=== PATIENT | female | born 1965 | race Two or more races ===

== ENCOUNTER 2023-11-25 14:27 | Emergency (ER) | payer MEDICAID ==
[~2023-11-25] VITALS: Ht 152.4 cm; Wt 88.7 kg
[2023-11-25 14:27] VITALS: BP 130/60; PULSE 97; RESP 18; O2SAT 100
== END 2023-11-25 20:50 | disposition left against medical advice (07) ==
LOC: ER 14:27
DX: R06.02 Shortness of breath (principal); R05.9 Cough, unspecified; Z53.21 Procedure and treatment not carried out due to patient leaving prior to being seen by health care provider
CPT/HCPCS: 93005

== ENCOUNTER 2023-12-15 03:19 | Inpatient (IN) | payer MEDICAID ==
[~2023-12-15] VITALS: Ht 152.4 cm; Wt 96.8 kg
[2023-12-15 03:46] LABS: Basophils # (auto) 0.1 10 ^3/uL (0-0.2); Eosinophils # (auto) 0 10 ^3/uL (0-0.8); Eosinophils % (auto) 0.4 % (0.0-7.0); Hemoglobin 9.6 g/dL (12.2-16.2); Monocytes # (auto) 0.6 10 ^3/uL (0-1.3)
[2023-12-15 03:48] LABS: Basophils % (auto) 0.8 % (0.0-2.0); Hematocrit 30.1 % (36.0-46.0); Lymphocytes # (auto) 0.9 10 ^3/uL (0.4-5.4); Lymphocytes % (auto) 10.2 % (10.0-50.0); Mean Corpuscular Hemoglobin 22.1 pg (28.0-32.0); Neutrophils # (auto) 7.4 10 ^3/uL (1.6-8.6); Neutrophils % (auto) 81.6 % (37.0-80.0); Red Blood Cells 4.36 10^6/uL (4.0-5.20); Red Cell Distribution Width 18.1 % (11.8-14.3); White Blood Cell 9.1 10^3/uL (4.4-10.8)
[2023-12-15 03:54] LABS: Chloride 110 mmol/L (98-107); Potassium 3.4 mmol/L (3.5-5.1); Sodium 139 mmol/L (136-145)
[2023-12-15 03:55] LABS: Anion Gap 9 (5-15); Calcium 8.8 mg/dL (8.7-10.4); Carbon Dioxide 20 mmol/L (20-30)
[2023-12-15 04:00] LABS: BUN/Creatinine Ratio 13.5 (10.0-20.0); Blood Urea Nitrogen 21 mg/dL (9-23); Glucose 100 mg/dL (74-106)
[2023-12-15] MEDS: MORPHINE SULFATE 4 MG/ML SYR/VIAL IV ONE (04:20)
[2023-12-15 04:52] LABS: Urine Bacteria None Seen /hpf (None Seen)
[2023-12-15 04:59] LABS: Urine Blood 1+ /uL (Negative); Urine Clarity Clear (Clear); Urine Color Light-Yellow (Yellow); Urine Mucus FEW (None Seen); Urine Protein, UAD 1+ (Negative); Urine Specific Gravity 1.017 (1.001-1.035); Urine Urobilinogen Normal (Negative); Urine WBC 82 /hpf (0 - 5)
[2023-12-15] MEDS: cefTRIAXone 1GM/50ML D5W 50 ML IV ONE (05:03)
[2023-12-15] MEDS ORDERED: DOCUSATE SOD 100 MG CAP PO PRN (05:45)
[2023-12-15] MEDS ORDERED: MORPHINE SULFATE INJ 2 MG/ml SYRG IV PRN (05:45)
[2023-12-15] MEDS ORDERED: NITROGLYCERIN 0.4 MG SL TAB SL PRN (05:45)
[2023-12-15] MEDS: POTASSIUM CHL 20 Meq TABLET PO ONE (06:37)
[2023-12-15] MEDS: SODIUM CHLORIDE 0.9% 1,000 ML IV SCH (06:38)
[2023-12-15 07:30] VITALS: PULSE 76; RESP 14; O2SAT 98
[2023-12-15] MEDS: MORPHINE SULFATE 4 MG/ML SYR/VIAL IV PRN (11:54)
[2023-12-15 14:34] VITALS: BP 139/76; PULSE 92; RESP 16; TEMP 99.7; O2SAT 95
[2023-12-15] MEDS: HYDROcodone-ACET 5/325MG TAB PO PRN (15:10)
[2023-12-15 17:00] VITALS: BP 112/63; PULSE 91; RESP 19; TEMP 101.4; O2SAT 94
[2023-12-15] MEDS: ACETAMINOPHEN 325 MG TAB PO PRN (17:39)
[2023-12-15] MEDS: TAMSULOSIN HYDROCHLORIDE 0.4 MG CAP PO SCH (17:40)
[2023-12-15 20:00] VITALS: RESP 17; O2SAT 97
[2023-12-15 21:00] VITALS: BP 107/65; PULSE 94; RESP 20; TEMP 98.7; O2SAT 95
[2023-12-16] VITALS (7 sets, daily range): BP systolic 98–135; BP diastolic 53–76; PULSE 92–98; RESP 16–22; TEMP 98.9–101.6; O2SAT 94–98
[2023-12-16] MEDS: cefTRIAXone 1GM/50ML D5W 50 ML IV SCH (04:48)
[2023-12-16 06:18] LABS: Eosinophils # (auto) 0 10 ^3/uL (0-0.8); Eosinophils % (auto) 0.2 % (0.0-7.0); Hemoglobin 9.2 g/dL (12.2-16.2); Lymphocytes # (auto) 0.7 10 ^3/uL (0.4-5.4); Lymphocytes % (auto) 5.2 % (10.0-50.0); Mean Corpuscular Hemoglobin 21.5 pg (28.0-32.0); White Blood Cell 13.2 10^3/uL (4.4-10.8)
[2023-12-16 06:20] LABS: Basophils # (auto) 0.1 10 ^3/uL (0-0.2); Basophils % (auto) 0.5 % (0.0-2.0); Hematocrit 29.9 % (36.0-46.0); Mean Corpuscular Hgb Conc. 30.9 g/dL (32.0-36.0); Mean Corpuscular Volume 69.6 fL (80.0-100.0); Monocytes % (auto) 7.3 % (0.0-12.0); Neutrophils # (auto) 11.4 10 ^3/uL (1.6-8.6); Neutrophils % (auto) 86.8 % (37.0-80.0); Red Cell Distribution Width 17.8 % (11.8-14.3)
[2023-12-16 06:34] LABS: Alanine Aminotransferase 27 U/L (7-40); Alkaline Phosphatase 135 U/L (46-116); Anion Gap 8 (5-15); BUN/Creatinine Ratio 9.4 (10.0-20.0); Blood Urea Nitrogen 18 mg/dL (9-23); Calcium 8.3 mg/dL (8.7-10.4); Carbon Dioxide 20 mmol/L (20-30); Chloride 106 mmol/L (98-107); Glucose 82 mg/dL (74-106); Potassium 3.6 mmol/L (3.5-5.1)
[2023-12-16 06:35] LABS: Albumin 3.3 g/dL (3.2-4.8); Aspartate Aminotransferase 30 U/L (13-40); Bilirubin, Total 1.9 mg/dL (0.2-1.0); Total Protein 6.5 g/dL (5.7-8.2)
[2023-12-16 06:36] LABS: Sodium 134 mmol/L (136-145)
[2023-12-16] MEDS: SODIUM CHLORIDE 0.9% 1,000 ML IV SCH (12:15)
[2023-12-16] MEDS: ONDANSETRON HCL 4 MG/2 ML VIAL IV PRN (17:45)
[2023-12-17] VITALS (7 sets, daily range): BP systolic 93–132; BP diastolic 50–75; PULSE 76–122; RESP 16–19; TEMP 36.8; O2SAT 90–97
[2023-12-17] MEDS ORDERED: TAMS-35 PO (09:42)
[2023-12-17] MEDS ORDERED: CIPR-173 PO (09:42)
[2023-12-17] MEDS ORDERED: TRAM50TA2 PO (09:43)
[2023-12-17] MEDS: ACETAMINOPHEN 325 MG TAB PO PRN (13:21)
[2023-12-17 14:04] LABS: Urine Bacteria FEW /hpf (None Seen); Urine Blood 3+ /uL (Negative); Urine Protein, UAD 1+ (Negative); Urine Specific Gravity 1.008 (1.001-1.035); Urine Urobilinogen Normal (Negative); Urine WBC 593 /hpf (0 - 5); Urine WBC Clumps PRESENT /hpf (None Seen); Urine pH 5.5 (5.0-9.0)
[2023-12-17 14:14] LABS: Urine Color Yellow (Yellow)
[2023-12-17 14:15] LABS: Urine Clarity Cloudy (Clear)
[2023-12-18 01:00] VITALS: BP 125/69; PULSE 93; RESP 16; TEMP 99.2; O2SAT 95
[2023-12-18 05:34] VITALS: BP 114/59; PULSE 90; RESP 20; TEMP 99.1; O2SAT 99
[2023-12-18 07:55] VITALS: RESP 16; O2SAT 96
[2023-12-18 12:07] VITALS: BP 130/70; PULSE 70; RESP 16; TEMP 99; O2SAT 96
== END 2023-12-18 13:50 | disposition home or self-care (01) | DRG 720 ==
LOC: ER 03:19 → EDBD 03:19 → OVERFLOW 05:47 → CENTRAL 13:43
PROVIDERS: ADMIT Nurse Practitioner Family; ATTEND Family Medicine
DX: A41.9 Sepsis, unspecified organism (principal); N17.0 Acute kidney failure with tubular necrosis; N13.6 Pyonephrosis; B95.61 Methicillin susceptible Staphylococcus aureus infection as the cause of diseases classified elsewhere; E86.0 Dehydration; Z93.3 Colostomy status; Z87.442 Personal history of urinary calculi; Z93.2 Ileostomy status
CPT/HCPCS: 36415; 74176; 80048; 80053; 81001; 85025; 87040; 87086; 87088; 87186; 93005; 96365; 96375; G0378; J2405

== ENCOUNTER 2023-12-31 04:04 | Inpatient (IN) | payer MEDICAID ==
[~2023-12-31] VITALS: Ht 152.4 cm; Wt 90.6 kg
[~2023-12-31 04:04] MED LIST: CIPR-173 PO; TAMS-35 PO; TRAM50TA2 PO
[2023-12-31 04:36] LABS: Basophils # (auto) 0.1 10 ^3/uL (0-0.2); Eosinophils # (auto) 0.1 10 ^3/uL (0-0.8); Mean Corpuscular Hemoglobin 21.9 pg (28.0-32.0)
[2023-12-31 04:38] LABS: Basophils % (auto) 0.9 % (0.0-2.0); Eosinophils % (auto) 0.9 % (0.0-7.0); Hemoglobin 10.6 g/dL (12.2-16.2); Lymphocytes % (auto) 11.7 % (10.0-50.0); Mean Corpuscular Hgb Conc. 31.1 g/dL (32.0-36.0); Mean Corpuscular Volume 70.2 fL (80.0-100.0); Monocytes # (auto) 0.6 10 ^3/uL (0-1.3); Neutrophils % (auto) 79.5 % (37.0-80.0); Red Blood Cells 4.83 10^6/uL (4.0-5.20); White Blood Cell 8.8 10^3/uL (4.4-10.8)
[2023-12-31 04:39] LABS: Red Cell Distribution Width 20.1 % (11.8-14.3)
[2023-12-31 04:46] LABS: Chloride 106 mmol/L (98-107); Potassium 3.2 mmol/L (3.5-5.1); Sodium 138 mmol/L (136-145)
[2023-12-31 04:47] LABS: Anion Gap 9 (5-15); Calcium 7.9 mg/dL (8.7-10.4); Carbon Dioxide 23 mmol/L (20-30)
[2023-12-31 04:52] LABS: BUN/Creatinine Ratio 24.9 (10.0-20.0); Blood Urea Nitrogen 42 mg/dL (9-23); Glucose 104 mg/dL (74-106)
[2023-12-31] MEDS: SODIUM CHLORIDE 0.9% 1,000 ML IV ONE (06:45)
[2023-12-31] MEDS: ASPirin 81 mg TAB PO ONE (07:23)
[2023-12-31] MEDS: POTASSIUM EFFERVESENT TAB 25 MEQ PO ONE (07:23)
[2023-12-31 07:25] VITALS: O2SAT 99
[2023-12-31] MEDS: ENOXAPARIN SOD 80 MG/0.8ML SYRINGE SC ONE (07:35)
[2023-12-31] MEDS ORDERED: MORPHINE SULFATE INJ 2 MG/ml SYRG IV PRN (09:45)
[2023-12-31] MEDS: SODIUM CHLORIDE 0.9% 1,000 ML IV SCH (09:45)
[2023-12-31] MEDS ORDERED: DOCUSATE SOD 100 MG CAP PO PRN (09:45)
[2023-12-31] MEDS ORDERED: ONDANSETRON HCL 4 MG/2 ML VIAL IV PRN (09:45)
[2023-12-31] MEDS ORDERED: NITROGLYCERIN 0.4 MG SL TAB SL PRN (09:45)
[2023-12-31] MEDS: METOPROLOL TARTRATE 25 MG TAB PO SCH (10:16)
[2023-12-31 10:36] LABS: Magnesium 1.2 mg/dL (1.6-2.6)
[2023-12-31] MEDS: MAGNESIUM SULFATE 1GM/100ML 100 ML IV SCH ×2 (12:10→18:35)
[2023-12-31 13:25] LABS: Magnesium 1.6 mg/dL (1.6-2.6)
[2023-12-31] MEDS: POTASSIUM CHL 20 Meq TABLET PO ONE (17:23)
[2023-12-31] MEDS: HYDROcodone-ACET 5/325MG TAB PO PRN (17:34)
[2023-12-31] MEDS: TAMSULOSIN HYDROCHLORIDE 0.4 MG CAP PO ONE (18:35)
[2023-12-31 19:38] VITALS: PULSE 79; RESP 14; O2SAT 99
[2023-12-31] MEDS: ACETAMINOPHEN 325 MG TAB PO PRN (23:05)
[2023-12-31 23:46] VITALS: BP 103/60; PULSE 82; RESP 17; TEMP 98.2; O2SAT 99
[2024-01-01] VITALS (8 sets, daily range): BP systolic 81–110; BP diastolic 45–67; PULSE 70–86; RESP 15–20; TEMP 97.3–98.1; O2SAT 95–100
[2024-01-01 06:36] LABS: Basophils # (auto) 0.1 10 ^3/uL (0-0.2); Basophils % (auto) 1.1 % (0.0-2.0); Eosinophils # (auto) 0.1 10 ^3/uL (0-0.8); Eosinophils % (auto) 2.3 % (0.0-7.0); Lymphocytes # (auto) 1.2 10 ^3/uL (0.4-5.4); Neutrophils # (auto) 3.9 10 ^3/uL (1.6-8.6); Red Cell Distribution Width 19.4 % (11.8-14.3)
[2024-01-01 06:40] LABS: Hematocrit 27.1 % (36.0-46.0); Hemoglobin 8.7 g/dL (12.2-16.2); Lymphocytes % (auto) 20.5 % (10.0-50.0); Mean Corpuscular Hemoglobin 22.3 pg (28.0-32.0); Mean Corpuscular Hgb Conc. 32.2 g/dL (32.0-36.0); Mean Corpuscular Volume 69.5 fL (80.0-100.0); Monocytes # (auto) 0.5 10 ^3/uL (0-1.3); Monocytes % (auto) 8.1 % (0.0-12.0); Nucleated Red Blood Cells % 0.1 %; Red Blood Cells 3.91 10^6/uL (4.0-5.20); White Blood Cell 5.8 10^3/uL (4.4-10.8)
[2024-01-01 06:49] LABS: Chloride 108 mmol/L (98-107); Potassium 3.7 mmol/L (3.5-5.1); Sodium 138 mmol/L (136-145)
[2024-01-01 06:50] LABS: Anion Gap 7 (5-15); Carbon Dioxide 23 mmol/L (20-30)
[2024-01-01 06:55] LABS: Glucose 89 mg/dL (74-106); Magnesium 2.5 mg/dL (1.6-2.6)
[2024-01-01 07:00] LABS: Blood Urea Nitrogen 29 mg/dL (9-23)
[2024-01-01 09:42] LABS: Urine Bacteria None Seen /hpf (None Seen)
[2024-01-01 10:16] LABS: Urine Blood 2+ /uL (Negative); Urine Clarity Turbid (Clear); Urine Color Colorless (Yellow); Urine Protein, UAD TRACE (Negative); Urine Specific Gravity 1.016 (1.001-1.035); Urine Urobilinogen Normal (Negative); Urine WBC 600 /hpf (0 - 5); Urine WBC Clumps PRESENT /hpf (None Seen); Urine pH 5.5 (5.0-9.0)
[2024-01-01 10:23] LABS: Amphetamine Screen, Urine Pos (NEGATIVE)
[2024-01-01 10:24] LABS: Barbiturate Scree,Urine Neg (NEGATIVE); Benzodiazephine Screen, Urine Pos (NEGATIVE); Cocaine Screen, Urine Neg (NEGATIVE); Opiate Scree,Urine Neg (NEGATIVE); Phencyclidine Screen, Urine Neg (NEGATIVE)
[2024-01-01 10:25] LABS: Cannabinoid Screen, Urine Neg (NEGATIVE)
[2024-01-01] MEDS: TAMSULOSIN HYDROCHLORIDE 0.4 MG CAP PO SCH (17:54)
[2024-01-01] MEDS: PANTOPRAZOLE 40 MG/10 ML VIAL INJ IV ONE (19:51)
== END 2024-01-01 23:00 | disposition left against medical advice (07) | DRG 201 ==
LOC: EDBD 04:04 → ER 04:04 → TELE 09:48 → TELE-CENTR 22:37
PROVIDERS: ADMIT Nurse Practitioner Family; ATTEND Internal Medicine Pulmonary Disease
DX: I47.10 Supraventricular tachycardia, unspecified (principal); N17.0 Acute kidney failure with tubular necrosis; I21.A1 Myocardial infarction type 2; E83.42 Hypomagnesemia; E87.6 Hypokalemia; F41.9 Anxiety disorder, unspecified; Z53.29 Procedure and treatment not carried out because of patient's decision for other reasons; E66.01 Morbid (severe) obesity due to excess calories; F15.10 Other stimulant abuse, uncomplicated; Z93.3 Colostomy status; Z79.2 Long term (current) use of antibiotics; Z79.899 Other long term (current) drug therapy; Z87.442 Personal history of urinary calculi; Z68.39 Body mass index [BMI] 39.0-39.9, adult
CPT/HCPCS: 36415; 71045; 80048; 80053; 80061; 80307; 81001; 83036; 83735; 84132; 84443; 84484; 85025; 87081; 93005; 93306; 99291; C9113; G0378

== ENCOUNTER 2024-01-12 17:04 | Inpatient (IN) | payer MEDICAID ==
[~2024-01-12] VITALS: Ht 157.5 cm; Wt 90.9 kg
[2024-01-12 17:49] VITALS: PULSE 80; RESP 20
[2024-01-12 18:51] LABS: Basophils # (auto) 0 10 ^3/uL (0-0.2); Eosinophils # (auto) 0.1 10 ^3/uL (0-0.8); Hemoglobin 9.7 g/dL (12.2-16.2); Lymphocytes # (auto) 1.2 10 ^3/uL (0.4-5.4); Mean Corpuscular Hemoglobin 22.5 pg (28.0-32.0); Mean Corpuscular Hgb Conc. 31.8 g/dL (32.0-36.0); Neutrophils # (auto) 4.8 10 ^3/uL (1.6-8.6); White Blood Cell 6.6 10^3/uL (4.4-10.8)
[2024-01-12 18:53] LABS: Basophils % (auto) 0.5 % (0.0-2.0); Eosinophils % (auto) 1.3 % (0.0-7.0); Hematocrit 30.6 % (36.0-46.0); Lymphocytes % (auto) 18.2 % (10.0-50.0); Mean Corpuscular Volume 70.5 fL (80.0-100.0); Monocytes # (auto) 0.5 10 ^3/uL (0-1.3); Monocytes % (auto) 7.6 % (0.0-12.0); Neutrophils % (auto) 72.4 % (37.0-80.0); Red Blood Cells 4.34 10^6/uL (4.0-5.20)
[2024-01-12 18:55] LABS: Red Cell Distribution Width 20.6 % (11.8-14.3)
[2024-01-12 18:59] LABS: Chloride 109 mmol/L (98-107); Potassium 3.1 mmol/L (3.5-5.1); Sodium 141 mmol/L (136-145)
[2024-01-12 19:00] LABS: Carbon Dioxide 25 mmol/L (20-30)
[2024-01-12 19:01] LABS: Calcium 8.8 mg/dL (8.5-10.1)
[2024-01-12 19:05] LABS: Glucose 93 mg/dL (74-106)
[2024-01-12 19:06] LABS: BUN/Creatinine Ratio 18.2 (10.0-20.0); Blood Urea Nitrogen 24 mg/dL (9-23)
[2024-01-12 19:29] LABS: Anion Gap 7 (5-15)
[2024-01-12] MEDS: POTASSIUM CHL 20 Meq TABLET PO ONE (19:51)
[2024-01-12] MEDS ORDERED: ONDANSETRON HCL 4 MG/2 ML VIAL IV PRN (21:00)
[2024-01-12] MEDS ORDERED: ACETAMINOPHEN 325 MG TAB PO PRN (21:00)
[2024-01-12] MEDS ORDERED: HYDROcodone-ACET 5/325MG TAB PO PRN (21:00)
[2024-01-12] MEDS ORDERED: DOCUSATE SOD 100 MG CAP PO PRN (21:00)
[2024-01-12] MEDS ORDERED: MORPHINE SULFATE INJ 2 MG/ml SYRG IV PRN ×2 (21:00→22:15)
[2024-01-12] MEDS ORDERED: NITROGLYCERIN 0.4 MG SL TAB SL PRN (22:15)
[2024-01-12] MEDS: SODIUM CHLOR 0.9% PF (SALINE LOCK) 10ML VIAL/SYR IV SCH (22:37)
[2024-01-12] MEDS: ASPirin-EC 325mg tab PO ONE (22:37)
[2024-01-13 04:19] LABS: Eosinophils # (auto) 0.2 10 ^3/uL (0-0.8); Lymphocytes # (auto) 1.5 10 ^3/uL (0.4-5.4); Lymphocytes % (auto) 25.6 % (10.0-50.0); Monocytes # (auto) 0.5 10 ^3/uL (0-1.3); Neutrophils # (auto) 3.5 10 ^3/uL (1.6-8.6); White Blood Cell 5.8 10^3/uL (4.4-10.8)
[2024-01-13 04:21] LABS: Basophils # (auto) 0.1 10 ^3/uL (0-0.2); Basophils % (auto) 1.2 % (0.0-2.0); Eosinophils % (auto) 3.2 % (0.0-7.0); Hematocrit 28.9 % (36.0-46.0); Hemoglobin 9.3 g/dL (12.2-16.2); Mean Corpuscular Hemoglobin 22.8 pg (28.0-32.0); Mean Corpuscular Hgb Conc. 32.3 g/dL (32.0-36.0); Mean Corpuscular Volume 70.8 fL (80.0-100.0); Monocytes % (auto) 8.9 % (0.0-12.0); Neutrophils % (auto) 61.1 % (37.0-80.0); Red Blood Cells 4.08 10^6/uL (4.0-5.20); Red Cell Distribution Width 20.8 % (11.8-14.3)
[2024-01-13 04:36] LABS: Alanine Aminotransferase 16 U/L (7-40); Albumin 3.6 g/dL (3.2-4.8); Alkaline Phosphatase 110 U/L (46-116); Anion Gap 6 (5-15); Aspartate Aminotransferase 17 U/L (13-40); BUN/Creatinine Ratio 16.8 (10.0-20.0); Blood Urea Nitrogen 21 mg/dL (9-23); Calcium 8.6 mg/dL (8.5-10.1); Carbon Dioxide 24 mmol/L (20-30); Chloride 110 mmol/L (98-107); Glucose 90 mg/dL (74-106); Potassium 3.6 mmol/L (3.5-5.1); Sodium 140 mmol/L (136-145)
[2024-01-13 04:37] LABS: Bilirubin, Total 0.7 mg/dL (0.2-1.0); Total Protein 6.7 g/dL (5.7-8.2)
[2024-01-13 07:30] VITALS: PULSE 69; RESP 12; O2SAT 97
[2024-01-13] MEDS: METOPROLOL TARTRATE 25 MG TAB PO SCH (10:00)
[2024-01-13] MEDS: ASPirin 81 mg TAB PO SCH (10:27)
[2024-01-13] MEDS: FAMOTIDINE (10MG/ML) 2ML VL IV SCH (10:28)
[2024-01-13] MEDS ORDERED: ASPI1TAB20 PO (13:02)
[2024-01-13] MEDS ORDERED: POTA8TAB38 PO (13:02)
[2024-01-13] MEDS ORDERED: METO25TA5 PO (13:02)
[2024-01-13 13:53] VITALS: BP 108/73; PULSE 85; RESP 18; TEMP 98; O2SAT 99
[2024-01-13 14:00] VITALS: BP 100/55; PULSE 77; RESP 12; O2SAT 98
[2024-01-13] MEDS ORDERED: ATORVASTATIN 20 MG TAB PO SCH (22:00)
== END 2024-01-13 14:40 | disposition home or self-care (01) | DRG 201 ==
LOC: EDBD 17:04 → ER 17:06 → TELE 22:11
PROVIDERS: ADMIT Nurse Practitioner Family; ATTEND Nurse Practitioner Family
DX: I47.10 Supraventricular tachycardia, unspecified (principal); I21.A1 Myocardial infarction type 2; I50.30 Unspecified diastolic (congestive) heart failure; E87.6 Hypokalemia; F15.10 Other stimulant abuse, uncomplicated; T43.655A Adverse effect of methamphetamines, initial encounter; N18.9 Chronic kidney disease, unspecified; Z79.82 Long term (current) use of aspirin; Z93.3 Colostomy status; Z80.3 Family history of malignant neoplasm of breast; Z87.442 Personal history of urinary calculi; Z79.899 Other long term (current) drug therapy; Y92.89 Other specified places as the place of occurrence of the external cause
CPT/HCPCS: 36415; 80048; 80053; 84484; 85025; 93005; 96374; 99291; G0378; J3490

== ENCOUNTER 2024-04-21 08:14 | Inpatient (IN) | payer MEDICAID ==
[~2024-04-21] VITALS: Ht 152.4 cm; Wt 93.5 kg
[~2024-04-21 08:14] MED LIST changes: +ASPI1TAB20 PO; +METO25TA5 PO; +POTA8TAB38 PO
[2024-04-21 08:58] LABS: Eosinophils # (auto) 0.1 10 ^3/uL (0-0.8); Lymphocytes # (auto) 1.3 10 ^3/uL (0.4-5.4); Mean Corpuscular Volume 71.9 fL (80.0-100.0); Monocytes # (auto) 0.6 10 ^3/uL (0-1.3); Nucleated Red Blood Cells % 0.1 %
[2024-04-21 09:01] LABS: Basophils # (auto) 0 10 ^3/uL (0-0.2); Basophils % (auto) 0.7 % (0.0-2.0); Eosinophils % (auto) 1.6 % (0.0-7.0); Hematocrit 32.8 % (36.0-46.0); Hemoglobin 10.8 g/dL (12.2-16.2); Lymphocytes % (auto) 19.3 % (10.0-50.0); Mean Corpuscular Hemoglobin 23.7 pg (28.0-32.0); Monocytes % (auto) 8.8 % (0.0-12.0); Neutrophils # (auto) 4.7 10 ^3/uL (1.6-8.6); Neutrophils % (auto) 69.6 % (37.0-80.0); Platelet Count (auto) 338 10^3/uL (140-450); Red Blood Cells 4.56 10^6/uL (4.0-5.20); Red Cell Distribution Width 17.9 % (11.8-14.3); White Blood Cell 6.7 10^3/uL (4.4-10.8)
[2024-04-21 09:05] LABS: Chloride 108 mmol/L (98-107); Potassium 3.6 mmol/L (3.5-5.1); Sodium 140 mmol/L (136-145)
[2024-04-21 09:06] LABS: Anion Gap 10 (5-15); Calcium 9.3 mg/dL (8.7-10.4); Carbon Dioxide 22 mmol/L (20-30)
[2024-04-21 09:11] LABS: BUN/Creatinine Ratio 17.6 (10.0-20.0); Blood Urea Nitrogen 31 mg/dL (9-23); Glucose 86 mg/dL (74-106)
[2024-04-21] MEDS ORDERED: DOCUSATE SOD 100 MG CAP PO PRN (14:30)
[2024-04-21] MEDS ORDERED: hydrALAZINE HCL 20 MG/ML VL IV PRN (14:30)
[2024-04-21] MEDS: SODIUM CHLORIDE 0.9% 1,000 ML IVB ONE (14:30)
[2024-04-21] MEDS: ONDANSETRON HCL 4 MG/2 ML VIAL IV ONE (14:42)
[2024-04-21] MEDS: MORPHINE SULFATE 4 MG/ML SYR/VIAL IV ONE (14:42)
[2024-04-21] MEDS ORDERED: MORPHINE SULFATE INJ 2 MG/ml SYRG IV PRN (15:15)
[2024-04-21] MEDS ORDERED: NITROGLYCERIN 0.4 MG SL TAB SL PRN (15:15)
[2024-04-21] MEDS: TAMSULOSIN HYDROCHLORIDE 0.4 MG CAP PO SCH (19:28)
[2024-04-21] MEDS: ONDANSETRON HCL 4 MG/2 ML VIAL IV PRN (19:49)
[2024-04-21] MEDS: MORPHINE SULFATE INJ 2 MG/ml SYRG IV PRN (19:49)
[2024-04-21 19:58] LABS: Urine Bacteria None Seen /hpf (None Seen)
[2024-04-21 20:12] LABS: Sodium Urine < 10 mmol/L (40-220); Urine Blood TRACE /uL (Negative); Urine Budding Yeast OCCASIONAL /hpf (None Seen); Urine Clarity Turbid (Clear); Urine Color Light-Yellow (Yellow); Urine Protein, UAD 1+ (Negative); Urine Specific Gravity 1.018 (1.001-1.035); Urine Urobilinogen Normal (Negative); Urine WBC 152 /hpf (0 - 5); Urine pH 5.5 (5.0-9.0)
[2024-04-21] MEDS: SODIUM CHLORIDE 0.9% 1,000 ML IV ONE (20:14)
[2024-04-21] MEDS: SODIUM CHLORIDE 0.9% 1,000 ML IV SCH (20:14)
[2024-04-21 20:16] LABS: Protein, Urine 55.3 mg/dL (0.0-11.9)
[2024-04-21 20:19] LABS: Creatinine, Urine 118.88 mg/dL (30.0-125.0)
[2024-04-21 22:00] VITALS: PULSE 89; RESP 18; O2SAT 97
[2024-04-22] MEDS: HYDROcodone-ACET 5/325MG TAB PO PRN (01:21)
[2024-04-22 07:15] LABS: Basophils # (auto) 0 10 ^3/uL (0-0.2); Basophils % (auto) 0.4 % (0.0-2.0); Eosinophils # (auto) 0.2 10 ^3/uL (0-0.8); Lymphocytes # (auto) 0.9 10 ^3/uL (0.4-5.4); Mean Corpuscular Volume 72.2 fL (80.0-100.0)
[2024-04-22 07:16] LABS: Eosinophils % (auto) 1.9 % (0.0-7.0); Hematocrit 31.5 % (36.0-46.0); Hemoglobin 10.3 g/dL (12.2-16.2); Lymphocytes % (auto) 11.1 % (10.0-50.0); Mean Corpuscular Hemoglobin 23.7 pg (28.0-32.0); Mean Corpuscular Hgb Conc. 32.8 g/dL (32.0-36.0); Monocytes # (auto) 0.6 10 ^3/uL (0-1.3); Monocytes % (auto) 7.6 % (0.0-12.0); Neutrophils # (auto) 6.2 10 ^3/uL (1.6-8.6); Platelet Count (auto) 304 10^3/uL (140-450); Red Blood Cells 4.36 10^6/uL (4.0-5.20); Red Cell Distribution Width 18.2 % (11.8-14.3); White Blood Cell 7.8 10^3/uL (4.4-10.8)
[2024-04-22 07:34] LABS: Alanine Aminotransferase 19 U/L (7-40); Albumin 4.1 g/dL (3.2-4.8); Alkaline Phosphatase 110 U/L (46-116); Anion Gap 10 (5-15); Aspartate Aminotransferase 17 U/L (13-40); BUN/Creatinine Ratio 13.8 (10.0-20.0); Blood Urea Nitrogen 30 mg/dL (9-23); Calcium 8.8 mg/dL (8.7-10.4); Carbon Dioxide 21 mmol/L (20-30); Chloride 107 mmol/L (98-107); Glucose 95 mg/dL (74-106); Potassium 3.4 mmol/L (3.5-5.1); Sodium 138 mmol/L (136-145)
[2024-04-22 07:35] LABS: Bilirubin, Total 1.9 mg/dL (0.2-1.0); Phosphorus 4.5 mg/dL (2.4-5.1); Total Protein 7.6 g/dL (5.7-8.2)
[2024-04-22 08:37] LABS: Uric Acid 9.4 mg/dL (3.1-7.8)
[2024-04-22] MEDS: ASPirin 81 mg TAB PO SCH (10:00)
[2024-04-22 16:31] VITALS: BP 110/67; PULSE 86; RESP 20; TEMP 98.1; O2SAT 98
[2024-04-22 17:27] VITALS: BP 110/67; PULSE 86; RESP 20; TEMP 98.1; O2SAT 98
[2024-04-22 20:00] VITALS: PULSE 83; PULSE 92; RESP 18; O2SAT 99
[2024-04-22 21:00] VITALS: BP 115/71; PULSE 92; RESP 20; TEMP 98.7; O2SAT 96
[2024-04-22] MEDS: TEMAZEPAM 15 MG CAP PO ONE (23:06)
[2024-04-22] MEDS: ACETAMINOPHEN 325 MG TAB PO PRN (23:33)
[2024-04-23] VITALS (8 sets, daily range): BP systolic 98–115; BP diastolic 17–65; PULSE 74–102; RESP 17–21; TEMP 97.9–99.6; O2SAT 94–99
[2024-04-23] MEDS ORDERED: DILT60TA PO (09:32)
[2024-04-23] MEDS ORDERED: FERR1TAB36 PO (09:34)
[2024-04-23 14:17] LABS: Anion Gap 9 (5-15); Calcium 8.4 mg/dL (8.7-10.4); Carbon Dioxide 21 mmol/L (20-30); Chloride 106 mmol/L (98-107); Sodium 136 mmol/L (136-145)
[2024-04-23 14:23] LABS: BUN/Creatinine Ratio 14.9 (10.0-20.0); Blood Urea Nitrogen 39 mg/dL (9-23); Glucose 83 mg/dL (74-106)
[2024-04-23] MEDS: MORPHINE SULFATE 4 MG/ML SYR/VIAL IV PRN (16:35)
[2024-04-23] MEDS: SODIUM CHLORIDE 0.9% 1,000 ML IV ONE ×2 (18:15→22:35)
[2024-04-23 21:38] LABS: % Iron Saturation 5.2 % (15-50)
[2024-04-23 21:42] LABS: Folate (Folic Acid) 12.39 ng/mL (>5.38)
[2024-04-23] MEDS: POTASSIUM CHL 20MEQ/100ML 100 ML IV SCH (22:34)
[2024-04-23] MEDS: SOD CHL 0.9%/ KCL 20MEQ 1,000 ML IV ONE (22:40)
[2024-04-24] VITALS (13 sets, daily range): BP systolic 92–137; BP diastolic 42–82; PULSE 79–101; RESP 13–19; TEMP 97–102.1; O2SAT 94–100
[2024-04-24] MEDS ORDERED: D5W/SOD CHL 0.45%/KCL 20MEQ 1,000 ML IV SCH (06:00)
[2024-04-24 07:07] LABS: INR 1.1 (0.9-1.15); Partial Thromboplastin Time 29.3 SEC (24.5-34.5); Prothrombin Time 11.6 sec (9.3-11.8)
[2024-04-24 07:09] LABS: Basophils # (auto) 0 10 ^3/uL (0-0.2); Eosinophils # (auto) 0.1 10 ^3/uL (0-0.8); Lymphocytes # (auto) 0.8 10 ^3/uL (0.4-5.4); Mean Corpuscular Hemoglobin 24.1 pg (28.0-32.0); Monocytes # (auto) 0.7 10 ^3/uL (0-1.3); Neutrophils # (auto) 6.6 10 ^3/uL (1.6-8.6); Platelet Count (auto) 253 10^3/uL (140-450)
[2024-04-24 07:11] LABS: Basophils % (auto) 0.4 % (0.0-2.0); Eosinophils % (auto) 1.1 % (0.0-7.0); Hematocrit 25.5 % (36.0-46.0); Hemoglobin 8.4 g/dL (12.2-16.2); Lymphocytes % (auto) 9.9 % (10.0-50.0); Mean Corpuscular Hgb Conc. 33.1 g/dL (32.0-36.0); Mean Corpuscular Volume 72.8 fL (80.0-100.0); Monocytes % (auto) 8.8 % (0.0-12.0); Neutrophils % (auto) 79.8 % (37.0-80.0); Red Cell Distribution Width 17.9 % (11.8-14.3); White Blood Cell 8.2 10^3/uL (4.4-10.8)
[2024-04-24 07:17] LABS: Alkaline Phosphatase 89 U/L (46-116); Anion Gap 10 (5-15); BUN/Creatinine Ratio 14.8 (10.0-20.0); Blood Urea Nitrogen 38 mg/dL (9-23); Calcium 7.8 mg/dL (8.7-10.4); Carbon Dioxide 18 mmol/L (20-30); Chloride 110 mmol/L (98-107); Glucose 96 mg/dL (74-106); Magnesium 1.4 mg/dL (1.6-2.6); Potassium 3.3 mmol/L (3.5-5.1); Sodium 138 mmol/L (136-145)
[2024-04-24 07:18] LABS: Albumin 3.3 g/dL (3.2-4.8); Aspartate Aminotransferase 17 U/L (13-40); Bilirubin, Total 1.5 mg/dL (0.2-1.0); Phosphorus 3.7 mg/dL (2.4-5.1)
[2024-04-24 07:19] LABS: Total Protein 6.2 g/dL (5.7-8.2)
[2024-04-24 07:20] LABS: Alanine Aminotransferase 9 U/L (7-40)
[2024-04-24] MEDS ORDERED: POTASSIUM CHL 20MEQ/100ML 100 ML IV SCH (08:00)
[2024-04-24] MEDS: POTASSIUM CHL 20MEQ/100ML 100 ML IV SCH (08:30)
[2024-04-24] MEDS: GASTROGRAFIN 120 ML SOL ONE (08:47)
[2024-04-24] MEDS: EZ-GAS II GRANULES (RADIOLOGY USE) PO ONE (08:49)
[2024-04-24] MEDS: POTASSIUM EFFERVESENT TAB 25 MEQ PO ONE (11:15)
[2024-04-24] MEDS: POTASSIUM CHL 20MEQ/100ML 100 ML IV ONE (14:30)
[2024-04-24] MEDS: LIDOCAINE 2%HCL (LOCAL ANESTH.) INJ 20ML MDV ONE (15:44)
[2024-04-24] MEDS: fentaNYL CITRATE 100 MCG/2 ML VL ONE (15:44)
[2024-04-24] MEDS: MIDAZOLAM HCL 2MG/2ML 2ml VIAL (1mg/ml) ONE (15:44)
[2024-04-24] MEDS: cefTRIAXone 1GM/50ML D5W 50 ML IV ONE (15:52)
[2024-04-25] VITALS (35 sets, daily range): BP systolic 84–132; BP diastolic 45–94; PULSE 70–119; RESP 13–26; TEMP 98–103.1; O2SAT 94–100
[2024-04-25] MEDS: D5W/SOD CHL 0.45% 1,000 ML IV SCH (09:41)
[2024-04-25] MEDS: PIPERACILLIN-TAZOB 3.375GM 100 ML IV ONE (09:45)
[2024-04-25 10:33] LABS: Basophils # (auto) 0.1 10 ^3/uL (0-0.2); Basophils % (auto) 0.8 % (0.0-2.0); Eosinophils # (auto) 0 10 ^3/uL (0-0.8); Hematocrit 29.3 % (36.0-46.0); Hemoglobin 9.5 g/dL (12.2-16.2); Lymphocytes # (auto) 0.1 10 ^3/uL (0.4-5.4); Lymphocytes % (auto) 1.6 % (10.0-50.0); Mean Corpuscular Hemoglobin 23.5 pg (28.0-32.0); Mean Corpuscular Hgb Conc. 32.5 g/dL (32.0-36.0); Mean Corpuscular Volume 72.3 fL (80.0-100.0); Monocytes # (auto) 0.4 10 ^3/uL (0-1.3); Neutrophils # (auto) 7.2 10 ^3/uL (1.6-8.6); Neutrophils % (auto) 92.6 % (37.0-80.0); Platelet Count (auto) 270 10^3/uL (140-450); Red Blood Cells 4.05 10^6/uL (4.0-5.20); Red Cell Distribution Width 18.2 % (11.8-14.3); White Blood Cell 7.7 10^3/uL (4.4-10.8)
[2024-04-25 12:05] LABS: Chloride 110 mmol/L (98-107); Potassium 3.3 mmol/L (3.5-5.1); Sodium 138 mmol/L (136-145)
[2024-04-25 12:06] LABS: Anion Gap 10 (5-15); Carbon Dioxide 18 mmol/L (20-31)
[2024-04-25 12:11] LABS: BUN/Creatinine Ratio 10.7 (10.0-20.0); Glucose 103 mg/dL (74-106)
[2024-04-25 12:12] LABS: Magnesium 1.1 mg/dL (1.6-2.6)
[2024-04-25 12:13] LABS: Phosphorus 3.2 mg/dL (2.4-5.1)
[2024-04-25 12:14] LABS: Blood Urea Nitrogen 27 mg/dL (9-23)
[2024-04-25] MEDS: ACETAMINOPHEN 325 MG TAB PO PRN (12:47)
[2024-04-25] MEDS: PIPERACILLIN-TAZOB 3.375GM 100 ML IV SCH (14:35)
[2024-04-25] MEDS: POTASSIUM CHL 20MEQ/100ML 100 ML IV SCH (15:27)
[2024-04-25] MEDS: MAGNESIUM SULFATE 1GM/100ML 100 ML IV SCH (18:45)
[2024-04-25] MEDS: IBUPROFEN 600 MG TAB PO PRN (20:37)
[2024-04-26] VITALS (48 sets, daily range): BP systolic 87–124; BP diastolic 40–64; PULSE 64–96; RESP 11–20; TEMP 97.4–98.7; O2SAT 95–100
[2024-04-26] MEDS: POTASSIUM CHL 20MEQ/100ML 100 ML IV ONE (00:21)
[2024-04-26 06:07] LABS: Eosinophils # (auto) 0 10 ^3/uL (0-0.8); Neutrophils # (auto) 7.1 10 ^3/uL (1.6-8.6); White Blood Cell 7.9 10^3/uL (4.4-10.8)
[2024-04-26 06:10] LABS: Basophils # (auto) 0 10 ^3/uL (0-0.2); Basophils % (auto) 0.5 % (0.0-2.0); Hematocrit 30.9 % (36.0-46.0); Lymphocytes # (auto) 0.3 10 ^3/uL (0.4-5.4); Lymphocytes % (auto) 3.4 % (10.0-50.0); Mean Corpuscular Hemoglobin 23.8 pg (28.0-32.0); Mean Corpuscular Hgb Conc. 32.2 g/dL (32.0-36.0); Monocytes # (auto) 0.5 10 ^3/uL (0-1.3); Neutrophils % (auto) 90.1 % (37.0-80.0); Nucleated Red Blood Cells % 0.1 %; Platelet Count (auto) 228 10^3/uL (140-450); Red Blood Cells 4.18 10^6/uL (4.0-5.20); Red Cell Distribution Width 18.8 % (11.8-14.3)
[2024-04-26 06:28] LABS: Alanine Aminotransferase 15 U/L (7-40); Alkaline Phosphatase 95 U/L (46-116); Anion Gap 12 (5-15); BUN/Creatinine Ratio 8.6 (10.0-20.0); Blood Urea Nitrogen 25 mg/dL (9-23); Carbon Dioxide 15 mmol/L (20-31); Chloride 106 mmol/L (98-107); Glucose 111 mg/dL (74-106); Magnesium 2.4 mg/dL (1.6-2.6)
[2024-04-26 06:29] LABS: Albumin 3.3 g/dL (3.2-4.8); Aspartate Aminotransferase 23 U/L (13-40); Bilirubin, Total 1.4 mg/dL (0.2-1.0); Total Protein 6.3 g/dL (5.7-8.2)
[2024-04-26 06:31] LABS: Sodium 133 mmol/L (136-145)
[2024-04-26] MEDS: SODIUM CHLORIDE 0.9% 1,000 ML IV ONE (16:00)
[2024-04-26 19:05] LABS: Urine Bacteria None Seen /hpf (None Seen)
[2024-04-26 19:17] LABS: Urine Amorphous Crystal FEW /hpf (None Seen); Urine Blood 2+ /uL (Negative); Urine Clarity Clear (Clear); Urine Color Colorless (Yellow); Urine Protein, UAD 1+ (Negative); Urine Specific Gravity 1.007 (1.001-1.035); Urine Urobilinogen Normal (Negative); Urine WBC 39 /hpf (0 - 5); Urine pH 5.5 (5.0-9.0)
[2024-04-26 19:29] LABS: Amphetamine Screen, Urine Neg (NEGATIVE); Barbiturate Scree,Urine Neg (NEGATIVE); Benzodiazephine Screen, Urine Neg (NEGATIVE); Cocaine Screen, Urine Neg (NEGATIVE); Opiate Scree,Urine Neg (NEGATIVE)
[2024-04-26 19:30] LABS: Cannabinoid Screen, Urine Neg (NEGATIVE); Phencyclidine Screen, Urine Neg (NEGATIVE)
[2024-04-26] MEDS ORDERED: MAALOX PLUS or MAALOX 30 ML PO PRN (20:30)
[2024-04-27] VITALS (27 sets, daily range): BP systolic 96–138; BP diastolic 50–78; PULSE 56–96; RESP 11–28; TEMP 97.6–98; O2SAT 92–100
[2024-04-27 05:57] LABS: Basophils # (auto) 0 10 ^3/uL (0-0.2); Eosinophils # (auto) 0.1 10 ^3/uL (0-0.8); Lymphocytes # (auto) 0.6 10 ^3/uL (0.4-5.4); Mean Corpuscular Hemoglobin 23.4 pg (28.0-32.0)
[2024-04-27 06:01] LABS: Basophils % (auto) 0.3 % (0.0-2.0); Eosinophils % (auto) 0.8 % (0.0-7.0); Hemoglobin 10.1 g/dL (12.2-16.2); Lymphocytes % (auto) 7.6 % (10.0-50.0); Mean Corpuscular Hgb Conc. 32.4 g/dL (32.0-36.0); Mean Corpuscular Volume 72.3 fL (80.0-100.0); Monocytes # (auto) 0.4 10 ^3/uL (0-1.3); Monocytes % (auto) 5.4 % (0.0-12.0); Neutrophils # (auto) 6.4 10 ^3/uL (1.6-8.6); Neutrophils % (auto) 85.9 % (37.0-80.0); Nucleated Red Blood Cells % 0.2 %; Platelet Count (auto) 272 10^3/uL (140-450); Red Blood Cells 4.29 10^6/uL (4.0-5.20); Red Cell Distribution Width 18.9 % (11.8-14.3); White Blood Cell 7.4 10^3/uL (4.4-10.8)
[2024-04-27 06:09] LABS: Chloride 107 mmol/L (98-107); Potassium 3.8 mmol/L (3.5-5.1); Sodium 135 mmol/L (136-145)
[2024-04-27 06:10] LABS: Anion Gap 13 (5-15); Carbon Dioxide 15 mmol/L (20-31)
[2024-04-27 06:11] LABS: Calcium 8.7 mg/dL (8.7-10.4)
[2024-04-27 06:16] LABS: BUN/Creatinine Ratio 9.5 (10.0-20.0); Blood Urea Nitrogen 32 mg/dL (9-23); Glucose 96 mg/dL (74-106)
[2024-04-27] MEDS ORDERED: HYDR-4902 PO ×2 (13:32→14:02)
[2024-04-27] MEDS ORDERED: AUG875T PO (13:32)
[2024-04-27] MEDS ORDERED: POTA8TAB38 PO (13:34)
[2024-04-27] MEDS ORDERED: PIPERACILLIN-TAZOB 3.375GM 100 ML IV SCH (18:00)
== END 2024-04-27 17:40 | disposition home or self-care (01) | DRG 720 ==
LOC: ER 08:14 → TELE-EAST 15:02 → TELE 15:02 → TELE-EAST 04-22 16:16 → TELE-WESTW 04-25 09:40 → DOU IN ICU 04-25 21:22 → TELE-CENTR 04-27 13:55
PROVIDERS: ADMIT Nurse Practitioner Family; ATTEND Internal Medicine
PROC: 0T9330Z Drainage of Right Kidney Pelvis with Drainage Device, Percutaneous Approach (ICD-10-PCS; principal; 2024-04-24)
DX: A41.9 Sepsis, unspecified organism (principal); N17.0 Acute kidney failure with tubular necrosis; G93.41 Metabolic encephalopathy; K90.829 Short bowel syndrome, unspecified; N13.6 Pyonephrosis; D50.9 Iron deficiency anemia, unspecified; J45.909 Unspecified asthma, uncomplicated; K43.9 Ventral hernia without obstruction or gangrene; Z66 Do not resuscitate; E87.6 Hypokalemia; D25.9 Leiomyoma of uterus, unspecified; I12.9 Hypertensive chronic kidney disease with stage 1 through stage 4 chronic kidney disease, or unspecified chronic kidney disease; N18.32 Chronic kidney disease, stage 3b; Z80.3 Family history of malignant neoplasm of breast; Z87.442 Personal history of urinary calculi; Z93.2 Ileostomy status; Z93.6 Other artificial openings of urinary tract status; Z79.82 Long term (current) use of aspirin; Z79.899 Other long term (current) drug therapy
CPT/HCPCS: 36415; 50432; 70450; 71045; 74176; 74248; 74425; 76942; 80048; 80053; 80307; 81001; 82306; 82570; 82607; 82728; 82746; 83036; 83540; 83550; 83605; 83735; 84100; 84156; 84300; 84443; 84550; 85025; 85045; 85610; 85730; 87040; 87070; 87086; 87205; 96374; 96375; 99152; G0378; J2250; J2405; J2543; J3480

== ENCOUNTER 2024-05-13 14:39 | Inpatient (IN) | payer MEDICAID ==
[~2024-05-13] VITALS: Ht 154.9 cm; Wt 91.2 kg
[2024-05-13 15:23] LABS: Basophils # (auto) 0.1 10 ^3/uL (0-0.2); Eosinophils # (auto) 0.1 10 ^3/uL (0-0.8); Eosinophils % (auto) 1.9 % (0.0-7.0); Mean Corpuscular Hgb Conc. 32.8 g/dL (32.0-36.0); Neutrophils # (auto) 4.5 10 ^3/uL (1.6-8.6); Platelet Count (auto) 414 10^3/uL (140-450)
[2024-05-13 15:25] LABS: Basophils % (auto) 2.2 % (0.0-2.0); Hematocrit 32.8 % (36.0-46.0); Hemoglobin 10.8 g/dL (12.2-16.2); Lymphocytes # (auto) 1.4 10 ^3/uL (0.4-5.4); Lymphocytes % (auto) 20.9 % (10.0-50.0); Monocytes # (auto) 0.5 10 ^3/uL (0-1.3); Monocytes % (auto) 7.7 % (0.0-12.0); Neutrophils % (auto) 67.3 % (37.0-80.0); Red Blood Cells 4.49 10^6/uL (4.0-5.20); White Blood Cell 6.7 10^3/uL (4.4-10.8)
[2024-05-13 15:32] LABS: Chloride 106 mmol/L (98-107); Potassium 3.7 mmol/L (3.5-5.1); Sodium 137 mmol/L (136-145)
[2024-05-13 15:33] LABS: Anion Gap 10 (5-15); Carbon Dioxide 21 mmol/L (20-31)
[2024-05-13 15:34] LABS: Calcium 9.5 mg/dL (8.7-10.4)
[2024-05-13 15:38] LABS: BUN/Creatinine Ratio 17.2 (10.0-20.0); Blood Urea Nitrogen 43 mg/dL (9-23); Glucose 87 mg/dL (74-106)
[2024-05-13 15:44] LABS: Red Cell Distribution Width 20.9 % (11.8-14.3)
[2024-05-13 15:50] VITALS: PULSE 96; RESP 22; O2SAT 100
[2024-05-13 20:00] VITALS: PULSE 94; RESP 20; O2SAT 96
[2024-05-13] MEDS ORDERED: ACETAMINOPHEN 500 MG TAB PO PRN (20:45)
[2024-05-13] MEDS: ONDANSETRON HCL 4 MG/2 ML VIAL IV ONE (21:10)
[2024-05-13] MEDS: MORPHINE SULFATE 4 MG/ML SYR/VIAL IV ONE (21:11)
[2024-05-13 21:49] LABS: Urine Bacteria None Seen /hpf (None Seen)
[2024-05-13 21:55] LABS: INR 1.1 (0.9-1.15); Partial Thromboplastin Time 25.1 SEC (24.5-34.5); Prothrombin Time 11.6 sec (9.3-11.8)
[2024-05-13 22:00] LABS: Urine Blood 3+ /uL (Negative); Urine Budding Yeast FEW /hpf (None Seen); Urine Clarity Turbid (Clear); Urine Color Light-Orange (Yellow); Urine Hyaline Cast FEW /lpf (0 - 2); Urine Protein, UAD 1+ (Negative); Urine Specific Gravity 1.016 (1.001-1.035); Urine Urobilinogen Normal (Negative); Urine WBC 183 /hpf (0 - 5); Urine pH 5.5 (5.0-9.0)
[2024-05-13] MEDS ORDERED: POTASSIUM CHL 20MEQ/100ML 100 ML IV ONE (22:00)
[2024-05-13 22:11] LABS: Amphetamine Screen, Urine Pos (NEGATIVE); Barbiturate Scree,Urine Neg (NEGATIVE); Benzodiazephine Screen, Urine Neg (NEGATIVE); Cocaine Screen, Urine Neg (NEGATIVE); Opiate Scree,Urine Neg (NEGATIVE)
[2024-05-13 22:12] LABS: Cannabinoid Screen, Urine Neg (NEGATIVE); Phencyclidine Screen, Urine Neg (NEGATIVE)
[2024-05-13] MEDS: cefTRIAXone 1GM/50ML D5W 50 ML IV ONE (22:16)
[2024-05-13] MEDS ORDERED: ACETAMINOPHEN 325 MG TAB PO PRN (22:45)
[2024-05-13] MEDS: POTASSIUM EFFERVESENT TAB 25 MEQ PO ONE (22:48)
[2024-05-13] MEDS: TAMSULOSIN HYDROCHLORIDE 0.4 MG CAP PO ONE (22:58)
[2024-05-13] MEDS: SODIUM CHLORIDE 0.9% 1,000 ML IV SCH (22:58)
[2024-05-14] VITALS (10 sets, daily range): BP systolic 94–115; BP diastolic 44–69; PULSE 71–95; RESP 16–18; TEMP 97–98.4; O2SAT 96–100
[2024-05-14] MEDS: MAGNESIUM SULFATE 1GM/100ML 100 ML IV SCH (01:35)
[2024-05-14] MEDS: MORPHINE SULFATE INJ 2 MG/ml SYRG IV PRN (04:18)
[2024-05-14] MEDS ORDERED: INFLUENZA TRIVALENT 2024-2025 0.5 ML INJ IM ONE (05:30)
[2024-05-14 05:43] LABS: Basophils # (auto) 0.1 10 ^3/uL (0-0.2); Basophils % (auto) 1.5 % (0.0-2.0); Eosinophils # (auto) 0.2 10 ^3/uL (0-0.8); Eosinophils % (auto) 3.2 % (0.0-7.0); Hematocrit 30.1 % (36.0-46.0); Hemoglobin 9.9 g/dL (12.2-16.2); Lymphocytes # (auto) 1.3 10 ^3/uL (0.4-5.4); Lymphocytes % (auto) 25.4 % (10.0-50.0); Mean Corpuscular Hemoglobin 24.2 pg (28.0-32.0); Mean Corpuscular Hgb Conc. 32.9 g/dL (32.0-36.0); Mean Corpuscular Volume 73.4 fL (80.0-100.0); Monocytes # (auto) 0.5 10 ^3/uL (0-1.3); Monocytes % (auto) 10.3 % (0.0-12.0); Neutrophils # (auto) 2.9 10 ^3/uL (1.6-8.6); Neutrophils % (auto) 59.6 % (37.0-80.0); Nucleated Red Blood Cells % 0.1 %; Platelet Count (auto) 321 10^3/uL (140-450); Red Cell Distribution Width 20.6 % (11.8-14.3); White Blood Cell 4.9 10^3/uL (4.4-10.8)
[2024-05-14 05:57] LABS: Anion Gap 12 (5-15); Carbon Dioxide 20 mmol/L (20-31); Chloride 106 mmol/L (98-107); Potassium 3.3 mmol/L (3.5-5.1); Sodium 138 mmol/L (136-145)
[2024-05-14 05:58] LABS: Calcium 9.2 mg/dL (8.7-10.4)
[2024-05-14 06:03] LABS: BUN/Creatinine Ratio 17.4 (10.0-20.0); Blood Urea Nitrogen 41 mg/dL (9-23); Glucose 89 mg/dL (74-106)
[2024-05-14] MEDS: HYDROcodone-ACET 5/325MG TAB PO PRN (06:09)
[2024-05-14 07:16] LABS: Albumin 4.1 g/dL (3.2-4.8); Bilirubin, Direct 0.4 mg/dL (<0.3); Bilirubin, Total 1.2 mg/dL (0.2-1.0)
[2024-05-14] MEDS: POTASSIUM EFFERVESENT TAB 25 MEQ PO ONE (07:43)
[2024-05-14] MEDS: dilTIAZem 120MG ER CAP PO SCH (10:00)
[2024-05-14 10:39] LABS: % Iron Saturation 13.9 % (15-50)
[2024-05-14] MEDS: cefTRIAXone 1GM/50ML D5W 50 ML IV ONE (11:46)
[2024-05-14] MEDS: ERGOCALCIFEROL 50,000 UNIT(1.25MG) CAP PO SCH (11:46)
[2024-05-14] MEDS: IODIXANOL 320MG/ML 100ML BTL IV ONE (12:29)
[2024-05-14] MEDS: MIDAZOLAM HCL 2MG/2ML 2ml VIAL (1mg/ml) ONE (13:40)
[2024-05-14] MEDS: fentaNYL CITRATE 100 MCG/2 ML VL ONE (13:40)
[2024-05-14] MEDS: LIDOCAINE 2%HCL (LOCAL ANESTH.) INJ 20ML MDV ONE (14:46)
[2024-05-14] MEDS: TAMSULOSIN HYDROCHLORIDE 0.4 MG CAP PO SCH (18:52)
[2024-05-15] VITALS (7 sets, daily range): BP systolic 102–127; BP diastolic 53–61; PULSE 79–98; RESP 13–18; TEMP 97.2–98.7; O2SAT 96–99
[2024-05-15] MEDS: SODIUM CHLORIDE 0.9% 500 ML IV ONE (03:15)
[2024-05-15] MEDS: SODIUM CHLORIDE 0.9% 1,000 ML IV SCH (04:45)
[2024-05-15 07:59] LABS: Chloride 106 mmol/L (98-107); Sodium 135 mmol/L (136-145)
[2024-05-15 08:00] LABS: Anion Gap 8 (5-15); Carbon Dioxide 21 mmol/L (20-31)
[2024-05-15 08:01] LABS: Calcium 9.4 mg/dL (8.7-10.4)
[2024-05-15 08:04] LABS: Basophils # (auto) 0 10 ^3/uL (0-0.2); Basophils % (auto) 0.9 % (0.0-2.0); Eosinophils # (auto) 0.1 10 ^3/uL (0-0.8); Eosinophils % (auto) 1.7 % (0.0-7.0); Hematocrit 29.8 % (36.0-46.0); Hemoglobin 9.6 g/dL (12.2-16.2); Lymphocytes # (auto) 0.7 10 ^3/uL (0.4-5.4); Lymphocytes % (auto) 12.6 % (10.0-50.0); Mean Corpuscular Hemoglobin 24.4 pg (28.0-32.0); Mean Corpuscular Hgb Conc. 32.3 g/dL (32.0-36.0); Mean Corpuscular Volume 75.5 fL (80.0-100.0); Monocytes # (auto) 0.4 10 ^3/uL (0-1.3); Neutrophils # (auto) 4.3 10 ^3/uL (1.6-8.6); Neutrophils % (auto) 76.8 % (37.0-80.0); Nucleated Red Blood Cells % 0.1 %; Platelet Count (auto) 282 10^3/uL (140-450); Red Blood Cells 3.94 10^6/uL (4.0-5.20); Red Cell Distribution Width 21.3 % (11.8-14.3); White Blood Cell 5.6 10^3/uL (4.4-10.8)
[2024-05-15 08:05] LABS: Glucose 86 mg/dL (74-106)
[2024-05-15 08:06] LABS: BUN/Creatinine Ratio 15.9 (10.0-20.0); Magnesium 1.9 mg/dL (1.6-2.6)
[2024-05-15 08:07] LABS: Blood Urea Nitrogen 30 mg/dL (9-23)
[2024-05-15] MEDS: cefTRIAXone 1GM/50ML D5W 50 ML IV SCH (09:50)
[2024-05-15] MEDS: levoFLOXacin 500MG 100 ML IV ONE (12:50)
[2024-05-15] MEDS: VASOPRESSIN 20 UNIT/ML ONE (14:42)
[2024-05-15] MEDS: IOHEXOL 300 MG/ML 100ML BOTTLE IJ ONE (14:57)
[2024-05-15] MEDS ORDERED: HYDROmorphone HCL 2 MG/ML VL/or syr IV PRN (16:30)
[2024-05-15] MEDS: ONDANSETRON HCL 4 MG/2 ML VIAL IV ONE (17:44)
[2024-05-16 01:00] VITALS: BP 102/59; PULSE 75; RESP 16; TEMP 98.6; O2SAT 97
[2024-05-16 05:00] VITALS: BP 100/52; PULSE 73; RESP 18; TEMP 98.2; O2SAT 98
[2024-05-16] MEDS: SODIUM CHLORIDE 0.9% 500 ML IV ONE (05:39)
[2024-05-16 07:50] LABS: Basophils # (auto) 0 10 ^3/uL (0-0.2); Eosinophils # (auto) 0 10 ^3/uL (0-0.8); Lymphocytes # (auto) 0.3 10 ^3/uL (0.4-5.4); Mean Corpuscular Hemoglobin 24.7 pg (28.0-32.0); Mean Corpuscular Hgb Conc. 33.1 g/dL (32.0-36.0); Mean Corpuscular Volume 74.6 fL (80.0-100.0); Monocytes # (auto) 0.4 10 ^3/uL (0-1.3)
[2024-05-16 07:53] LABS: Basophils % (auto) 0.1 % (0.0-2.0); Hematocrit 26.1 % (36.0-46.0); Hemoglobin 8.7 g/dL (12.2-16.2); Lymphocytes % (auto) 4.6 % (10.0-50.0); Monocytes % (auto) 5.4 % (0.0-12.0); Neutrophils # (auto) 6.5 10 ^3/uL (1.6-8.6); Neutrophils % (auto) 89.9 % (37.0-80.0); Platelet Count (auto) 231 10^3/uL (140-450); Red Cell Distribution Width 21.2 % (11.8-14.3); White Blood Cell 7.3 10^3/uL (4.4-10.8)
[2024-05-16 08:04] LABS: Anion Gap 8 (5-15); Carbon Dioxide 20 mmol/L (20-31); Chloride 110 mmol/L (98-107); Potassium 4.6 mmol/L (3.5-5.1); Sodium 138 mmol/L (136-145)
[2024-05-16 08:05] LABS: Calcium 8.7 mg/dL (8.7-10.4)
[2024-05-16 08:10] LABS: BUN/Creatinine Ratio 16.3 (10.0-20.0); Blood Urea Nitrogen 33 mg/dL (9-23); Glucose 113 mg/dL (74-106)
[2024-05-16 09:00] VITALS: BP 109/62; PULSE 65; RESP 18; TEMP 98; O2SAT 99
[2024-05-16] MEDS ORDERED: CEFP200T15 PO (10:21)
[2024-05-16] MEDS ORDERED: ERGO1CAP23 PO (10:21)
[2024-05-16 13:00] VITALS: BP_SYST 101; BP_SYST 130; BP_DIAS 54; BP_DIAS 56; PULSE 69; PULSE 86; RESP 18; RESP 20; TEMP 97.5; TEMP 98.7; O2SAT 100; O2SAT 98
[2024-05-16 17:00] VITALS: BP 113/53; PULSE 92; RESP 18; TEMP 98.1; O2SAT 99
[2024-05-16 17:39] VITALS: BP 113/53; PULSE 92; RESP 18; TEMP 98.1; O2SAT 99
[2024-05-16] MEDS: INFLUENZA TRIVALENT 2024-2025 0.5 ML INJ IM ONE (18:31)
== END 2024-05-16 19:45 | disposition home or self-care (01) | DRG 446 ==
LOC: ER 14:43 → OVERFLOW 21:40 → CENTRAL 05-14 04:00
PROVIDERS: ADMIT Internal Medicine; ATTEND Internal Medicine
PROC: 0T25X0Z Change Drainage Device in Kidney, External Approach (ICD-10-PCS; 2024-05-14)
PROC: 0TC38ZZ Extirpation of Matter from Right Kidney Pelvis, Via Natural or Artificial Opening Endoscopic (ICD-10-PCS; 2024-05-15)
PROC: 0T768DZ Dilation of Right Ureter with Intraluminal Device, Via Natural or Artificial Opening Endoscopic (ICD-10-PCS; 2024-05-15)
PROC: 0TP5X0Z Removal of Drainage Device from Kidney, External Approach (ICD-10-PCS; principal; 2024-05-15 14:14)
DX: T83.022A Displacement of nephrostomy catheter, initial encounter (principal); N17.0 Acute kidney failure with tubular necrosis; I24.89 Other forms of acute ischemic heart disease; D63.1 Anemia in chronic kidney disease; I47.10 Supraventricular tachycardia, unspecified; N13.6 Pyonephrosis; N18.4 Chronic kidney disease, stage 4 (severe); F15.10 Other stimulant abuse, uncomplicated; D50.9 Iron deficiency anemia, unspecified; I12.9 Hypertensive chronic kidney disease with stage 1 through stage 4 chronic kidney disease, or unspecified chronic kidney disease; E66.9 Obesity, unspecified; E87.6 Hypokalemia; K43.9 Ventral hernia without obstruction or gangrene; E83.42 Hypomagnesemia; Y73.2 Prosthetic and other implants, materials and accessory gastroenterology and urology devices associated with adverse incidents; Z87.442 Personal history of urinary calculi; Z79.899 Other long term (current) drug therapy; Z79.82 Long term (current) use of aspirin; Z80.3 Family history of malignant neoplasm of breast; Z93.2 Ileostomy status; Z87.891 Personal history of nicotine dependence; Z90.49 Acquired absence of other specified parts of digestive tract; Z68.36 Body mass index [BMI] 36.0-36.9, adult
CPT/HCPCS: 36415; 50432; 71045; 74018; 74176; 74425; 76000; 80048; 80076; 80307; 81001; 82306; 82360; 82607; 82728; 83540; 83550; 83735; 84443; 85025; 85045; 85610; 85730; 86850; 86900; 86901; 87081; 87086; 90656; 93005; 93886; 93970; 99152; G0378; J1956; J2250; J2405; J3480; Q9967

== ENCOUNTER → 2024-05-13 | Outpatient (CLI) | payer MEDICAID ==
[~2024-05-13] MED LIST changes: +AUG875T PO; -CIPR-173 PO; +DILT60TA PO; +FERR1TAB36 PO; +HYDR-4902 PO
[2024-05-13 07:47] LABS: Eosinophils # (auto) 0.1 10 ^3/uL (0-0.8); Lymphocytes # (auto) 1.5 10 ^3/uL (0.4-5.4); Neutrophils # (auto) 4.6 10 ^3/uL (1.6-8.6)
[2024-05-13 07:48] LABS: Basophils # (auto) 0.1 10 ^3/uL (0-0.2); Basophils % (auto) 0.9 % (0.0-2.0); Eosinophils % (auto) 1.9 % (0.0-7.0); Hemoglobin 10.9 g/dL (12.2-16.2); Lymphocytes % (auto) 21.7 % (10.0-50.0); Mean Corpuscular Hemoglobin 24.5 pg (28.0-32.0); Mean Corpuscular Volume 74.2 fL (80.0-100.0); Monocytes # (auto) 0.6 10 ^3/uL (0-1.3); Monocytes % (auto) 8.2 % (0.0-12.0); Neutrophils % (auto) 67.3 % (37.0-80.0); Platelet Count (auto) 397 10^3/uL (140-450); Red Blood Cells 4.44 10^6/uL (4.0-5.20); Red Cell Distribution Width 20.8 % (11.8-14.3); White Blood Cell 6.9 10^3/uL (4.4-10.8)
[2024-05-13 08:30] LABS: Alanine Aminotransferase 31 U/L (7-40); Albumin 4.7 g/dL (3.2-4.8); Alkaline Phosphatase 140 U/L (46-116); Anion Gap 10 (5-15); Aspartate Aminotransferase 24 U/L (13-40); BUN/Creatinine Ratio 18.8 (10.0-20.0); Blood Urea Nitrogen 44 mg/dL (9-23); Calcium 9.3 mg/dL (8.7-10.4); Carbon Dioxide 23 mmol/L (20-31); Chloride 106 mmol/L (98-107); Cholesterol 133 mg/dL (< 200); Glucose 91 mg/dL (74-106); HDL Cholesterol 67 mg/dL (40-59); LDL Cholesterol 51 mg/dL (< 100); Potassium 3.8 mmol/L (3.5-5.1); Sodium 139 mmol/L (136-145); Triglycerides 104 mg/dL (< 150)
[2024-05-13 08:31] LABS: Bilirubin, Total 1.2 mg/dL (0.2-1.0); Total Protein 9.2 g/dL (5.7-8.2)
[2024-05-13 08:53] LABS: Free T3 3.18 pg/mL (2.3-4.2); Free T4 (Free Thyroxine) 1.57 ng/dL (0.89-1.76)
== END | disposition home or self-care (01) ==
LOC: LAB 07:31
PROVIDERS: ATTEND Internal Medicine
DX: I10 Essential (primary) hypertension (principal); R07.9 Chest pain, unspecified
CPT/HCPCS: 36415; 80053; 80061; 84439; 84443; 84481; 85025

== ENCOUNTER 2024-09-16 20:47 | Inpatient (IN) | payer MEDICAID ==
[~2024-09-16] VITALS: Ht 157.5 cm; Wt 88.5 kg
[~2024-09-16 20:47] MED LIST changes: -AUG875T PO; +CEFP200T15 PO; -DILT60TA PO; +ERGO1CAP23 PO; -METO25TA5 PO
[2024-09-16] MEDS: SODIUM CHLORIDE 0.9% 1,000 ML IV ONE (21:15)
--- NOTE | 2024-09-16 21:52 | ED.PDOC ---
History of Present Illness HPI Comments 59 y/o F with a history of complex ventral abdominal wall hernia s/p multiple hernia repair surgeries and ileostomy placement, CKD, anemia, asthma, hypertension and SVT BIBA from home c/o abdominal pain, nausea, generalized bodyaches, weakness and chills today. Patient states symptoms started around 1900 today after waking up from a nap. She was noted to have been found with a blood glucose of 83, tachycardic at a rate of 115, and a SpO2 92%RA on scene and was placed on O2 and given 4mg Zofran ODT en route. Upon arrival to ED, patient is complaining of right lower abdominal pain at the site of her stoma, and states that it appears and feels more swollen than usual. Patient denies having any vomiting, diarrhea, urinary symptoms, ileostomy discharge, or other associated symptoms or modifiers at this time. Chief Complaint: Flu like Time Seen by MD: 21:10 Primary Care Provider: OOA Reviewed Notes: Nurses Notes, Ed Case Manager Notes, Medications, Allergies Allergies: Coded Allergies: Penicillins (Verified Allergy, Unknown, 09/16/24) Home Meds Active Scripts Cefpodoxime Proxetil (Cefpodoxime Proxetil) 200 Mg Tab, 1 TAB PO BID for 5 Days, #10 TAB Prov:LOGAN MENDEZ RESIDENT 05/16/24 Ergocalciferol (VITAMIN D 47876 UNIT) 50,000 [place], [address] UNIT PO Q7D for 90 Days, #12 CAP Prov:LOGAN MENDEZ RESIDENT 05/16/24 Hydrocodone-Acetaminophen (Hydrocodone Bitartrate/AC 5-325 mg) 1 Tab Tab, 1 TAB PO Q6HPRN PRN, #20 TAB Prov:ELY LIGHT MD 04/27/24 Potassium Chloride (Klor-Con 8) 8 Meq Tab, 8 MEQ PO DAILY for 10 Days, #10 TAB Prov:ELY LIGHT MD 04/27/24 Aspirin (Aspir-81) 81 Mg Tab, 1 TAB PO DAILY, #90 TAB 1 Refill Prov:ESHA LANCASTER NP 01/13/24 Tramadol Hcl (Tramadol Hcl) 50 Mg Tab, 50 MG PO QID PRN, #20 TAB Prov:ADITHYA GALAN MD 12/17/23 Tamsulosin Hcl (Flomax) 0.4 Mg Cap, 1 CAP PO DAILY, #30 CAP 11 Refills Prov:ADITHYA GALAN MD 12/17/23 Reported Medications Ferrous Sulfate (Iron (Ferrous Sulfate)) 50 Mg Tab, 50 MG PO DAILY, TAB 04/23/24 Information Source: Patient, Emergency Med Personnel Mode of Arrival: EMS Severity: Moderate Timing: Hours Duration: Since onset Prehospital treatment: 12 Lead EKG, Accucheck (83), Finance Lead, Oxygen, T reatment (4mg Zofran ODT) Past Medical History PAST MEDICAL HISTORY: Anemia (chronic, microcytic secondary to CKF), Asthma, CKF, HTN, Kidney Stones Past Medical History (Other): SVT Surgical History: , Hernia Repair Surgical History (Other): Complex ventral abdominal wall hernia s/p multiple hernia repair surgeries and ileostomy placement FRONT END SOFTWARE ENGINEER History: No Pertinent FRONT END SOFTWARE ENGINEER History Family History Family History: Unknown Social History Smoker: Non-Smoker Alcohol: Denies ETOH Use Drugs: Methamphetamine Lives In: Home All Other Systems: Reviewed and Negative (Comprehensive systems review obtained and negative except for what is stated in the HPI.) Physical Exam General Appearance: Mild Distress HEENT: Other (Dry mucous membranes) Neck: Full Range of Motion, Normal Inspection Respiratory: Decreased Breath Sounds, No Accessory Muscle Use, No Respiratory Distress, Other (Tachypnea) Cardiovascular: No Edema, No JVD, Tachycardia Breast Exam: Deferred Gastrointestinal: Soft, Tenderness (Large amount of bowel herniating into the right lower extremity ileostomy bag with diffuse tenderness in the right lower abdominal area) Genitalia: Deferred Pelvic: Deferred Rectal: Deferred Extremities: Normal inspection, Normal range of motion, Non-tender, No pedal edema Neurologic: Alert (Oriented x4), Normal Affect, Normal Mood, Other (Moves all extremities. No gross focal deficit.) Cerebellar Function: NOT DONE Reflexes: NOT DONE Skin: Dry, Normal Color, Warm Lymphatic: NOT DONE Was a procedure done? Was a procedure done?: No EKG EKG : Comments Sinus tach, rate 101, normal intervals, right axis deviation, low voltage QRS, no ST/T changes. Differential Dx Considerations may include: Viral syndrome, UTI, colitis, diverticulitis, gastroenteritis, pain due to bowel herniation through the stoma, pneumonia, bronchitis, among others X-Ray, Labs, Meds, VS Vital Signs Date Time Temp Pulse Resp B/P (MAP) Pulse Ox O2 Delivery O2 Flow Rate FiO2 09/17/24 00:15 123 19 119/83 09/16/24 22:51 68 18 100 Nasal Cannula* 2 28 09/16/24 22:51 97.8 125 16 152/78 (102) 100 97.8 09/16/24 20:55 99.6 101 22 121/57 (78) 95 09/16/24 20:53 101 Lab Test 09/16/24 22:37 09/16/24 21:35 Range/Units Troponin I High Sensitivity 4 4 </=34 ng/L White Blood Count 5.9 4.4-10.8 10^3/uL Red Blood Count 4.36 4.0-5.20 10^6/uL Hemoglobin 10.1 L 12.2-16.2 g/dL Hematocrit 32.5 L 36.0-46.0 % Mean Corpuscular Volume 74.4 L 80.0-100.0 fL Mean Corpuscular Hemoglobin 23.1 L 28.0-32.0 pg Mean Corpuscular Hemoglobin Concent 31.0 L 32.0-36.0 g/dL Red Cell Distribution Width 16.6 H 11.8-14.3 % Platelet Count 322 140-450 10^3/uL Mean Platelet Volume 7.7 6.9-10.8 fL Neutrophils (%) (Auto) 91.2 H 37.0-80.0 % Lymphocytes (%) (Auto) 4.4 L 10.0-50.0 % Monocytes (%) (Auto) 3.8 0.0-12.0 % Eosinophils (%) (Auto) 0.1 0.0-7.0 % Basophils (%) (Auto) 0.5 0.0-2.0 % Neutrophils # (Auto) 5.4 1.6-8.6 10 ^3/uL Lymphocytes # (Auto) 0.3 L 0.4-5.4 10 ^3/uL Monocytes # (Auto) 0.2 0-1.3 10 ^3/uL Eosinophils # (Auto) 0 0-0.8 10 ^3/uL Basophils # (Auto) 0 0-0.2 10 ^3/uL Nucleated Red Blood Cells 0.0 % Sodium Level 141 136-145 mmol/L Potassium Level 3.5 3.5-5.1 mmol/L Chloride Level 110 H 98-107 mmol/L Carbon Dioxide Level 20 20-31 mmol/L Anion Gap 11 5-15 Blood Urea Nitrogen 30 H 9-23 mg/dL Creatinine 1.53 H 0.550-1.02 mg/dL Glomerular Filtration Rate Calc 39 >90 mL/min BUN/Creatinine Ratio 19.6 10.0-20.0 Serum Glucose 91 74-106 mg/dL Lactic Acid Level 1.1 0.4-2.0 mmol/L Calcium Level 8.7 8.7-10.4 mg/dL Total Bilirubin 0.9 0.2-1.0 mg/dL Aspartate Amino Transferase (AST) 18 13-40 U/L Alanine Aminotransferase (ALT) 16 7-40 U/L Alkaline Phosphatase 106 46-116 U/L B-Type Natriuretic Peptide 29.67 0-100 pg/mL Total Protein 7.0 5.7-8.2 g/dL Albumin 4.1 3.2-4.8 g/dL Current Medications Medications (Trade) Dose Ordered Sig/Alvin Route Start Time Stop Time Status Last Admin Ondansetron HCl (Zofran) 4 mg ONCE ONCE IV 09/16/24 21:15 09/16/24 21:16 DC 09/17/24 00:15 Sodium Chloride 1,000 ml @ 1,000 mls/hr Q1H ONCE IV 09/16/24 21:15 09/16/24 22:14 DC 09/16/24 21:15 Morphine Sulfate 4 mg ONCE ONCE IV 09/16/24 21:15 09/16/24 21:16 DC 09/17/24 00:15 Acetaminophen (Tylenol Tablet Or Capsule) 1,000 mg ONCE ONCE PO 09/16/24 21:15 09/16/24 21:16 DC 09/17/24 00:15 PROCEDURE(s): CXR1 - CHEST XRAY 1 VIEW REASON: fever ORDER NUMBER(s): [id number], ACCESSION NUMBER(s): [id number] CHEST RADIOGRAPH Indication: fever Technique: Single frontal view of the chest was obtained Comparison: XY CHEST XRAY 1 VIEW on DOS: 05/13/24, XY CHEST PORTABLE on DOS: 04/25/24, XY CHEST PORTABLE on DOS: 12/31/23 FINDINGS: Lines and Tubes: Questionable tracheostomy tube in place. Correlate with clinical setting. Lungs: Bilateral perihilar peribronchial thickening consistent with bronchitis. Pleura: No effusion. No pneumothorax. Cardiomediastinal contours: Unremarkable Bones: No acute osseous abnormality. IMPRESSION: 1. Bilateral perihilar peribronchial thickening suggesting bronchitis. 2. Questionable tracheostomy tube correlate with clinical setting. EDURE(s): ABPL - CT AB PEL WO CON-NO ORAL OR IV REASON: RLQ pain/stoma pain, fever, nausea ORDER NUMBER(s): [id number], ACCESSION NUMBER(s): [id number] Exam: CT CT AB PEL WO CON-NO ORAL OR IV History: RLQ pain/stoma pain, fever, nausea Comparison Study: None available at time of dictation. Technique: Multidetector spiral CT of the abdomen was performed from lung bases to pubic symphysis. Imaging was performed without IV contrast. Axial, coronal and sagittal multiplanar reformats were obtained from the axial data set by the technologist. Radiation Dose : 1. Abdomen/Pelvis: CTDIvol 24.73 mGy, DLP 1210.65 mGy*cm. Findings: Evaluation of solid organs is limited due to lack of intravenous contrast use. Lung Bases: No acute or significant lung base finding. Normal heart size. No pleural or pericardial effusion. Liver: The liver is normal in size. No focal lesions. Gallbladder and Biliary Tree: Gallbladder is surgically absent. Spleen: Enlarged measuring 13 cm craniocaudal. Pancreas: The pancreas is grossly normal in appearance. Adrenal Glands: Unremarkable Kidneys: 5 mm nonobstructing right renal stone. Duplicated bilateral collecting system. Bladder: Grossly unremarkable for degree of distention. Bowel: The stomach is grossly normal in appearance. Right lower quadrant ostomy with associated large peristomal hernia. The appendix is not visualized; however, no secondary findings of acute appendicitis identified. Large left lateral hernia containing loops of colon. Ascites: Absent Lymphadenopathy: No mesenteric, retroperitoneal or periportal lymphadenopathy. Abdominal Wall and Mesentery: Unremarkable. Vasculature: The visualized abdominal aorta is normal in size and caliber. Evaluation of abdominal and pelvic vessels is limited due to lack of intravenous contrast. Splenic varices. Pelvic Organs: Calcified uterine fibroids. Musculoskeletal: No aggressive focal bony lesions, acute fractures or dislocation. IMPRESSION: Right lower quadrant ostomy with associated large peristomal hernia. There are loops of small bowel and colon. No evidence of strangulation. Large left lateral ventral wall herniation demonstrating loops of colon. No d efinitive evidence of strangulation Ancillary findings described above. Possible portal hypertension. END IMPRESSION: X-Ray, Labs, Meds, VS Comment 59 y/o F with a history of complex ventral abdominal wall hernia s/p multiple hernia repair surgeries and ileostomy placement, CKD, anemia, asthma, hypertension and SVT BIBA from home c/o abdominal pain, nausea, generalized bodyaches, weakness and chills today. Vitals remarkable for temperature 99.6, heart rate 123, respiratory rate 22 Exam remarkable for tachypnea, tachycardia and a large section of bowel herniating into the right lower abdominal ileostomy bag with diffuse right lower abdominal tenderness Rhythm strip independently interpreted by me: Sinus tach, rate 101, no ectopy. Chest x-ray IMPRESSION: 1. Bilateral perihilar peribronchial thickening suggesting bronchitis. 2. Questionable tracheostomy tube correlate with clinical setting. CT abdomen and pelvis IMPRESSION: Right lower quadrant ostomy with associated large peristomal hernia. There are loops of small bowel and colon. No evidence of strangulation. Large left lateral ventral wall herniation demonstrating loops of colon. No definitive evidence of strangulation Ancillary findings described above. Possible portal hypertension. CBC unremarkable, metabolic panel remarkable for BUN 30, creatinine 1.53, lactate normal, BNP and serial troponins negative UA pending Patient treated with the following in the ED: 1 L 0.9 normal saline IV bolus, morphine 4 mg IV, Zofran 4 mg IV, Tylenol 1 g p.o., Levaquin 750 mg IV On re-evaluation, patient is afebrile, mildly tachycardic, however pain has improved. Plan is to admit the patient for respiratory support, IV antibiotics, pain control, and possible surgical evaluation of the peristomal hernia. Time of 1ST Reevaluation: 21:40 Reevaluation 1ST: Unchanged Patient Education/Counseling: Diagnosis, Treatment Family Education/Counseling: No Family Present Additional Information - I reviewed the following notes from patient's past medical encounters: hospital admission discharge summary report on 05/16/24 - The following tests were ordered, and results were reviewed by me: EKG, troponin, Covid19 antigen and rapid influenza A/B test, lactic acid, UA, BNP, CMP, CBC, urine bacterial culture, blood culture, CXR, CT abdomen/pelvis w/o contrast - Additional information was gathered from interviewing the following independent Historian: EMS - I reviewed and agreed with the following test results read by other provider: CXR, CT abdomen/pelvis w/o contrast - I discussed treatments and results with medical personnel Departure 1 Departure Time of Disposition: :56 Impression: Primary Impression: Acute bronchitis Qualified Codes: J20.9 - Acute bronchitis, unspecified Additional Impression: Peristomal hernia Disposition: ADMITTED INPATIENT Admit to: Med Surg Condition: Guarded Critical Care Note Critical Care Time?: No Stability Stability form required: No Heart Score Heart Score: Heart Score Response (Comments) Value History N/A 0 EKG N/A 0 Age N/A 0 Risk Factors N/A 0 Troponin N/A 0 Total 0 I personally scribed for NANCY VILLALTA MD ([email or web address]) on 09/16/24 at 21:52. Electronically submitted by Natalio Dorsey ([email or web address]). NANCY VILLALTA MD Sep 16, 2024 21:52
[2024-09-16 22:00] LABS: Basophils # (auto) 0 10 ^3/uL (0-0.2); Eosinophils # (auto) 0 10 ^3/uL (0-0.8); Hematocrit 32.5 % (36.0-46.0); Hemoglobin 10.1 g/dL (12.2-16.2); Lymphocytes # (auto) 0.3 10 ^3/uL (0.4-5.4); Lymphocytes % (auto) 4.4 % (10.0-50.0); Monocytes # (auto) 0.2 10 ^3/uL (0-1.3); Neutrophils % (auto) 91.2 % (37.0-80.0)
[2024-09-16 22:02] LABS: Basophils % (auto) 0.5 % (0.0-2.0); Eosinophils % (auto) 0.1 % (0.0-7.0); Mean Corpuscular Hemoglobin 23.1 pg (28.0-32.0); Mean Corpuscular Volume 74.4 fL (80.0-100.0); Monocytes % (auto) 3.8 % (0.0-12.0); Neutrophils # (auto) 5.4 10 ^3/uL (1.6-8.6); Platelet Count (auto) 322 10^3/uL (140-450); Red Blood Cells 4.36 10^6/uL (4.0-5.20); Red Cell Distribution Width 16.6 % (11.8-14.3); White Blood Cell 5.9 10^3/uL (4.4-10.8)
[2024-09-16 22:17] LABS: Alanine Aminotransferase 16 U/L (7-40); Albumin 4.1 g/dL (3.2-4.8); Alkaline Phosphatase 106 U/L (46-116); Anion Gap 11 (5-15); Aspartate Aminotransferase 18 U/L (13-40); BUN/Creatinine Ratio 19.6 (10.0-20.0); Bilirubin, Total 0.9 mg/dL (0.2-1.0); Carbon Dioxide 20 mmol/L (20-31); Glucose 91 mg/dL (74-106); Potassium 3.5 mmol/L (3.5-5.1); Sodium 141 mmol/L (136-145)
[2024-09-16 22:18] LABS: Blood Urea Nitrogen 30 mg/dL (9-23); Calcium 8.7 mg/dL (8.7-10.4); Chloride 110 mmol/L (98-107)
--- NOTE | 2024-09-16 22:20 | DVH ---
CHEST RADIOGRAPH Indication: fever Technique: Single frontal view of the chest was obtained Comparison: XY CHEST XRAY 1 VIEW on DOS: 05/13/24, XY CHEST PORTABLE on DOS: 04/25/24, XY CHEST PORTAB LE on DOS: 12/31/23 FINDINGS: Lines and Tubes: Questionable tracheostomy tube in place. Correlate with clinical setting. Lungs: Bilateral perihilar peribronchial thickening consistent with bronchitis. Pleura: No effusion. No pneumothorax. Cardiomediastinal contours: Unremarkable Bones: No acute osseous abnormality. IMPRESSION: 1. Bilateral perihilar peribronchial thickening suggesting bronchitis. 2. Questionable tracheostomy tube correlate with clinical setting.
[2024-09-16 22:51] VITALS: PULSE 68; RESP 18; O2SAT 100
[2024-09-16 23:15] VITALS: RESP 18; O2SAT 100
--- NOTE | 2024-09-16 23:37 | DVH ---
Exam: CT CT AB PEL WO CON-NO ORAL OR IV History: RLQ pain/stoma pain, fever, nausea Comparison Study: None available at time of dictation. Technique: Multidetector spiral CT of the abdomen was performed from lung bases to pubic symphysis. I maging was performed without IV contrast. Axial, coronal and sagittal multiplanar reformats were obta ined from the axial data set by the technologist. Radiation Dose : 1. Abdomen/Pelvis: CTDIvol 24.73 mGy, DLP 1210.65 mGy*cm. Findings: Evaluation of solid organs is limited due to lack of intravenous contrast use. Lung Bases: No acute or significant lung base finding. Normal heart size. No pleural or pericardial effusion. Liver: The liver is normal in size. No focal lesions. Gallbladder and Biliary Tree: Gallbladder is surgically absent. Spleen: Enlarged measuring 13 cm craniocaudal. Pancreas: The pancreas is grossly normal in appearance. Adrenal Glands: Unremarkable Kidneys: 5 mm nonobstructing right renal stone. Duplicated bilateral collecting system. Bladder: Grossly unremarkable for degree of distention. Bowel: The stomach is grossly normal in appearance. Right lower quadrant ostomy with associated large peristomal hernia. The appendix is not visualized; however, no secondary findings of acute appendic itis identified. Large left lateral hernia containing loops of colon. Ascites: Absent Lymphadenopathy: No mesenteric, retroperitoneal or periportal lymphadenopathy. Abdominal Wall and Mesentery: Unremarkable. Vasculature: The visualized abdominal aorta is normal in size and caliber. Evaluation of abdominal a nd pelvic vessels is limited due to lack of intravenous contrast. Splenic varices. Pelvic Organs: Calcified uterine fibroids. Musculoskeletal: No aggressive focal bony lesions, acute fractures or dislocation. IMPRESSION: Right lower quadrant ostomy with associated large peristomal hernia. There are loops of small bowel a nd colon. No evidence of strangulation. Large left lateral ventral wall herniation demonstrating loops of colon. No definitive evidence of st rangulation Ancillary findings described above. Possible portal hypertension. END IMPRESSION:
[2024-09-17] MEDS: ONDANSETRON HCL 4 MG/2 ML VIAL IV ONE (00:15)
[2024-09-17] MEDS: ACETAMINOPHEN 500 MG TAB or CAP PO ONE (00:15)
[2024-09-17] MEDS: MORPHINE SULFATE 4 MG/ML SYR/VIAL IV ONE (00:15)
[2024-09-17] MEDS: levoFLOXacin 750MG 150 ML IV ONE (02:00)
[2024-09-17 02:14] LABS: Urine Bacteria FEW /hpf (None Seen); Urine Blood TRACE /uL (Negative); Urine Budding Yeast OCCASIONAL /hpf (None Seen); Urine Clarity Clear (Clear); Urine Color Light-Yellow (Yellow); Urine Protein, UAD TRACE (Negative); Urine Specific Gravity 1.012 (1.001-1.035); Urine Squamous Epithelial Cell FEW /hpf (<5); Urine Urobilinogen Normal (Negative); Urine WBC 11 /HPF (0-5)
[2024-09-17 03:26] LABS: COVID19 ANTIGEN SOFIA FIA NEGATIVE (NEGATIVE); Rapid Influenza A Negative (Negative)
[2024-09-17 03:27] LABS: Rapid Influenza B Positive (Negative)
[2024-09-17] MEDS: OSELTAMIVIR 75 MG CAP PO SCH (04:15)
[2024-09-17] MEDS: SODIUM CHLORIDE 0.9% 1,000 ML IV ONE ×2 (04:15→12:09)
[2024-09-17] MEDS: CIPROFLOXACIN 400MG/200ML 200 ML IV SCH (04:36)
[2024-09-17 04:57] LABS: Basophils # (auto) 0 10 ^3/uL (0-0.2); Eosinophils # (auto) 0 10 ^3/uL (0-0.8); Eosinophils % (auto) 0.1 % (0.0-7.0); Lymphocytes # (auto) 0.2 10 ^3/uL (0.4-5.4); Monocytes # (auto) 0.2 10 ^3/uL (0-1.3); Neutrophils # (auto) 5.2 10 ^3/uL (1.6-8.6)
[2024-09-17 05:00] LABS: Basophils % (auto) 0.1 % (0.0-2.0); Hematocrit 30.2 % (36.0-46.0); Hemoglobin 9.4 g/dL (12.2-16.2); Lymphocytes % (auto) 4.2 % (10.0-50.0); Mean Corpuscular Hemoglobin 23.2 pg (28.0-32.0); Mean Corpuscular Hgb Conc. 31.2 g/dL (32.0-36.0); Mean Corpuscular Volume 74.5 fL (80.0-100.0); Monocytes % (auto) 3.4 % (0.0-12.0); Neutrophils % (auto) 92.2 % (37.0-80.0); Platelet Count (auto) 275 10^3/uL (140-450); Red Blood Cells 4.06 10^6/uL (4.0-5.20); Red Cell Distribution Width 16.9 % (11.8-14.3); White Blood Cell 5.6 10^3/uL (4.4-10.8)
[2024-09-17 05:22] LABS: Alanine Aminotransferase 18 U/L (7-40); Albumin 3.7 g/dL (3.2-4.8); Alkaline Phosphatase 93 U/L (46-116); Anion Gap 9 (5-15); Aspartate Aminotransferase 26 U/L (13-40); BUN/Creatinine Ratio 16.6 (10.0-20.0); Bilirubin, Total 1.1 mg/dL (0.2-1.0); Carbon Dioxide 21 mmol/L (20-31); Glucose 94 mg/dL (74-106); Sodium 140 mmol/L (136-145); Total Protein 6.4 g/dL (5.7-8.2)
[2024-09-17 05:27] LABS: Blood Urea Nitrogen 25 mg/dL (9-23); Calcium 8.2 mg/dL (8.7-10.4); Chloride 110 mmol/L (98-107); Potassium 3.1 mmol/L (3.5-5.1)
[2024-09-17] MEDS: POTASSIUM CHL 20MEQ/100ML 100 ML IV SCH (05:45)
[2024-09-17] MEDS: metroNIDAZOLE 500MG/100ML 100 ML IV SCH (05:59)
--- NOTE | 2024-09-17 05:59 | DVHHPRES ---
History of Present Illness Resident Creating Document: AGUSTIN TOBAR RESIDENT Reason for Visit: flu like symptoms History of Present Illness Patient is a 59-year-old female with a history of complex ventral abdominal hernias status post multiple hernia repair surgeries and ileostomy placement, chronic kidney disease, anemia, asthma, hypertension, and supraventricular tachycardia. She was brought in from home with complaints of abdominal pain, nausea, generalized body aches, weakness, and chills that started around 7pm after waking from a nap. She was found with a blood glucose of 83, was tachycardic at 115, had SpO2 of 92% on room air, and received 4 mg of Zofran ODT en route. Upon arrival, she reported right lower abdominal pain at the site of her stoma and noted that it appeared and felt more swollen than usual. She denies vomiting, diarrhea, urinary symptoms, ileostomy discharge, or other associated complaints. 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 Past Surgical History: Multiple hernia repairs (including complex ventral hernias), ileostomy placement, recent nephrostomy, seven C-sections, skin grafting procedures started approximately five years ago, appendectomy, and cholecystectomy. Social History: Lives with family in [place], uses marijuana whenever she has pain, has prior documentation of methamphetamine use, and currently denies tobacco, alcohol, or other drug abuse. Allergies: Denies any known drug allergies. Review of Systems Constitutional: No: Fever, Chills, Sweats, Weakness, Malaise, Other Eyes: No: Pain, Vision change, Conjunctivae inflammation, Eyelid inflammation, Other, Redness ENT: No: Ear pain, Ear discharge, Nose pain, Nose discharge, Nose congestion, Mouth pain, Mouth swelling, Throat pain, Throat swelling, Other Respiratory: Cough, Shortness of breath; No: Dry, SOB with excertion, Wheezing, Hemoptysis, Pleuritic Pain, Sputum, Wheezing, Other Cardiovascular: No: Chest Pain, Palpitations, Orthopnea, Paroxysmal Noc. Dyspnea, Edema, Lt Headedness, Other Gastrointestinal: Abdominal Pain; No: Nausea, Vomiting, Diarrhea, Constipation, Melena, Hematochezia, Other Genitourinary: No Dysuria, No Frequency, No Incontinence, No Hematuria, No Retention, No Other Musculoskeletal: No: other, neck pain, shoulder pain, arm pain, back pain, hand pain, leg pain, foot pain Skin: No: Rash, Lesions, Jaundice, Bruising, Other Neurological: No: Weakness, Numbness, Incoordination, Change in speech, Confusion, Seizures, Other Allergies: Coded Allergies: Penicillins (Verified Allergy, Unknown, 09/16/24) Medications Current Medications Medications Dose Ordered Sig/Alvin Route Start Time Stop Time Status Last Admin Dose Admin Oseltamivir Phosphate 75 mg DAILY PO 09/17/24 04:00 09/22/24 03:59 09/17/24 04:15 75 MG Ciprofloxacin 200 ml @ 200 mls/hr BID IV 09/17/24 04:00 09/17/24 04:36 200 MLS/HR Metronidazole 100 ml @ 100 mls/hr TID IV 09/17/24 06:00 Potassium Chloride 100 ml @ 50 mls/hr Q2H IV 09/17/24 05:45 09/17/24 11:44 UNV Exam Vital Signs Vital Signs Date Time Temp Pulse Resp B/P (MAP) Pulse Ox O2 Delivery O2 Flow Rate FiO2 09/17/24 05:00 87 13 95/49 (64) 100 09/16/24 23:15 Nasal Cannula* 2 28 09/16/24 22:51 97.8 97.8 General Appearance: Alert, No acute distress HEENT: Other (dehydrated ) Respiratory: Clear to auscultation Cardiovascular: Regular rate, Normal S1 Abdominal: Other (evisceration due to ileostomy, tenderness at palpation generalized ) Extremities: No edema Skin: No rashes Neuro: Normal speech, Strength at 5/5 X4 ext, Normal tone Psych/Mental Status: Mental status NL, Mood NL Labs/Xrays Labs Test 09/17/24 04:23 09/17/24 02:35 09/17/24 01:30 09/16/24 22:37 Range/Units White Blood Count 5.6 4.4-10.8 10^3/uL Red Blood Count 4.06 4.0-5.20 10^6/uL Hemoglobin 9.4 L 12.2-16.2 g/dL Hematocrit 30.2 L 36.0-46.0 % Mean Corpuscular Volume 74.5 L 80.0-100.0 fL Mean Corpuscular Hemoglobin 23.2 L 28.0-32.0 pg Mean Corpuscular Hemoglobin Concent 31.2 L 32.0-36.0 g/dL Red Cell Distribution Width 16.9 H 11.8-14.3 % Platelet Count 275 140-450 10^3/uL Mean Platelet Volume 7.9 6.9-10.8 fL Neutrophils (%) (Auto) 92.2 H 37.0-80.0 % Lymphocytes (%) (Auto) 4.2 L 10.0-50.0 % Monocytes (%) (Auto) 3.4 0.0-12.0 % Eosinophils (%) (Auto) 0.1 0.0-7.0 % Basophils (%) (Auto) 0.1 0.0-2.0 % Neutrophils # (Auto) 5.2 1.6-8.6 10 ^3/uL Lymphocytes # (Auto) 0.2 L 0.4-5.4 10 ^3/uL Monocytes # (Auto) 0.2 0-1.3 10 ^3/uL Eosinophils # (Auto) 0 0-0.8 10 ^3/uL Basophils # (Auto) 0 0-0.2 10 ^3/uL Nucleated Red Blood Cells 0.0 % Sodium Level 140 136-145 mmol/L Potassium Level 3.1 L 3.5-5.1 mmol/L Chloride Level 110 H 98-107 mmol/L Carbon Dioxide Level 21 20-31 mmol/L Anion Gap 9 5-15 Blood Urea Nitrogen 25 H 9-23 mg/dL Creatinine 1.51 H 0.550-1.02 mg/dL Glomerular Filtration Rate Calc 40 >90 mL/min BUN/Creatinine Ratio 16.6 10.0-20.0 Serum Glucose 94 74-106 mg/dL Lactic Acid Level 1.3 0.4-2.0 mmol/L Calcium Level 8.2 L 8.7-10.4 mg/dL Total Bilirubin 1.1 H 0.2-1.0 mg/dL Aspartate Amino Transferase (AST) 26 13-40 U/L Alanine Aminotransferase (ALT) 18 7-40 U/L Alkaline Phosphatase 93 46-116 U/L Total Protein 6.4 5.7-8.2 g/dL Albumin 3.7 3.2-4.8 g/dL Influenza Type A Antigen Negative Negative Influenza Type B Antigen Positive Negative SARS-CoV-2 Antigen (Rapid) Negative NEGATIVE Urine Color Light-yellow Yellow Urine Clarity Clear Clear Urine pH 5.0 5.0-9.0 Urine Specific [place] 1.012 1.001-1.035 Urine Protein Trace H Negative Urine Ketones Negative Negative Urine Blood Trace H Negative /uL Urine Nitrite Negative Negative Urine Bilirubin Negative Negative Urine Urobilinogen Normal Negative mg/dL Urine Leukocyte Esterase Trace Negative /uL Urine RBC 3 0 - 4 /hpf Urine Microscopic WBC 11 H 0-5 /HPF Urine Squamous Epithelial Cells Few <5 /hpf Urine Bacteria Few H None Seen /hpf Urine Yeast (Budding) Occasional None Seen /hpf Urine Glucose Normal Normal mg/dL Troponin I High Sensitivity 4 </=34 ng/L Test 09/16/24 21:35 Range/Units B-Type Natriuretic Peptide 29.67 0-100 pg/mL Assessment/Plan Assessment/Plan CT scan abdomen: Right lower quadrant ostomy with associated large peristomal hernia. There are loops of small bowel and colon. No evidence of strangulation. Large left lateral ventral wall herniation demonstrating loops of colon. No definitive evidence of strangulation Ancillary findings described above. Possible portal hypertension. #Evisceration #Right lower quadrant ostomy with associated large peristomal hernia. #Large left lateral ventral wall herniation #Viral pneumonitis: influenza B + #Splenomegaly #Splenic varices #Possible sepsis #Acute respiratory failure resolved #HOLLY on CKD #Hypokalemia #H/o nephrostomy Admit Med/Surg NPO Metronidazole and Cipro IV Fluids NS 100 cc/hour Potassium IV Oseltamivir 75 p.o. Surgical consult due to large periosteal hernia/ evisceration Pending: UDS Iron panel ferritin magnesium blood culture MRSA culture Case discussed with Dr Prado Time spent on care 23 min Plan discussed with: Patient, Other (rn) My Orders Orders - AGUSTIN TOBAR RESIDENT Procedure Category Date Status Time * Surgical Consult CONS 09/17/24 Transmitted Admit ADMIT 09/17/24 Transmitted 03:42 Oseltamivir 75mg PHA 09/17/24 In Process Capsule (Tamiflu 75mg 04:00 Npo Except For SANTOSH 09/17/24 In Process Medications 03:49 Sodium Chloride 0.9% PHA 09/17/24 In Process 04:00 Ciprofloxacin PHA 09/17/24 In Process 400mg/200ml (Cipro Iv) 04:00 Metronidazole PHA 09/17/24 In Process 500mg/100ml (Flagyl 06:00 Mrsa Screen BEL 09/17/24 Logged 03:51 Potassium Chl PHA 09/17/24 Logged 20meq/100ml 05:45 Iron Panel LAB 09/17/24 Logged 05:39 Ferritin LAB 09/17/24 Logged 05:39 Magnesium LAB 09/17/24 Logged 05:40 Drug Screen LAB 09/17/24 Verified 05:44 Date of Service: Sep 17, 2024 Billing Provider: SINDHU PRADO MD Common Visit Codes: [id number] INP/OBS CARE (HIGH) AGUSTIN TOBAR RESIDENT Sep 17, 2024 05:59 SINDHU PRADO MD Sep 17, 2024 08:47
[2024-09-17 06:15] LABS: % Iron Saturation 6.5 % (15-50)
[2024-09-17 07:30] VITALS: PULSE 94; RESP 15; O2SAT 99
[2024-09-17 07:40] LABS: Opiate Scree,Urine Neg (NEGATIVE)
[2024-09-17 07:41] LABS: Amphetamine Screen, Urine Pos (NEGATIVE); Barbiturate Scree,Urine Neg (NEGATIVE); Benzodiazephine Screen, Urine Neg (NEGATIVE); Cannabinoid Screen, Urine Neg (NEGATIVE); Cocaine Screen, Urine Neg (NEGATIVE); Phencyclidine Screen, Urine Neg (NEGATIVE)
[2024-09-17] MEDS: MAGNESIUM SULFATE 1GM/100ML 100 ML IV ONE (09:23)
[2024-09-17] MEDS: ENOXAPARIN SOD 40 MG/0.4 ML SYRINGE SC SCH (10:00)
[2024-09-17] MEDS: PANTOPRAZOLE 40 MG/10 ML VIAL INJ IV SCH (10:00)
[2024-09-17] MEDS: MEROPENEM 1GM IVPB 50 ML IV ONE (12:09)
--- NOTE | 2024-09-17 15:18 | DVHPNRES ---
Progress Note Date Seen: Sep 17, 2024 Resident Creating Document: WILLIAM FOY RESIDENT Medical Necessity Reason Pt with a Central, PICC or Fol: Yes The following are medically ne: Urbina Catheter Subjective Review of Systems Patient is a 59-year-old female with past medical history of CKD, anemia, hypertension who came in due to generalized weakness. According to the patient, yesterday on 09/17/2024, she felt increasing weakness and fatigue, while she was in the restroom she felt like she could not get up from the toilet. At baseline patient is able to walk independently. Patient denies having similar symptoms before. At the time of my assessment patient was alert and oriented in 4 spheres, however, patient was increasingly somnolent and unable to answer most questions. Majority of the history was obtained from patient's daughter at bedside. 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 On inquiring patient and her daughter, they denied any changes in the frequency or forearm of ileostomy output, denied any pain or tenderness along the ileostomy. CT scan showed right lower quadrant ostomy with large peristomal hernia. Loops of small bowel and colon. Large left ventral wall herniation. Patient tested positive for influenza B. Past surgical history: Multiple hernia repair surgeries, ileostomy placement, recent nephrostomy currently removed, 7 times , skin grafting procedures, appendectomy, cholecystectomy Past Hospitalization: 1 month ago for nephrolithiasis Social & Personal history: Patient lives with her family. Denies ever using tobacco, alcohol, drugs. Allergies: Penicillin, however, patient unsure of what reaction he brings on Patient seen and examined at bedside. Patient is alert and oriented to time, place person and responding to all questions. General: Fatigue, fever, chills Eyes: No Pain, No Vision change, No Conjunctivae inflammation, No Eyelid inflammation, No Other, No Redness ENT: No Ear pain, No Ear discharge, No Nose pain, No Nose discharge, No Nose congestion, No Mouth pain, No Mouth swelling, No Throat pain, No Throat swelling, No Other Cardiovascular: No Chest Pain, No Palpitations, No Orthopnea, No Paroxysmal No Dyspnea, No Edema, No Lt Headedness, No Other Respiratory: No Cough, No Dry, shortness of breaths, No Wheezing, No Hemoptysis, No Pleuritic Pain, No Sputum, No Other Gastrointestinal: Nausea, Vomiting, No Abdominal Pain, No Diarrhea, No Constipation, No Melena, No Hematochezia, No Other Genitourinary: No Dysuria, No Frequency, No Incontinence, No Hematuria, No Retention, No Other Musculoskeletal: No other, No neck pain, No shoulder pain, No arm pain, No back pain, No hand pain, No leg pain, No foot pain Skin: No Rash, No Lesions, No Jaundice, No Bruising, No Other Objective vital signs Vital Sign Date Time Temp Pulse Resp B/P (MAP) Pulse Ox O2 Delivery O2 Flow Rate FiO2 09/17/24 08:39 94 15 105/55 (72) 99 09/17/24 07:30 Nasal Cannula* 2 28 09/16/24 22:51 97.8 97.8 Total Intake and Output 09/16/24 09/16/24 09/17/24 15:00 23:00 07:00 Intake Total 1000 ml 650 ml Balance 1000 ml 650 ml medications Current Medications Medications Dose Ordered Sig/Alvin Route Start Time Stop Time Status Last Admin Dose Admin Oseltamivir Phosphate 75 mg DAILY PO 09/17/24 04:00 09/22/24 03:59 09/17/24 04:15 75 MG Acetaminophen 650 mg Q6HP PRN PO 09/17/24 06:00 Pantoprazole Sodium 40 mg DAILY IV 09/17/24 10:00 09/17/24 10:00 40 MG Enoxaparin Sodium 40 mg DAILY SC 09/17/24 10:00 09/17/24 10:00 40 MG Meropenem 50 ml @ 17 mls/hr Q12HR IV 09/17/24 22:00 Examination General Appearance: Somnolent, some periorbital swelling. Well developed. Well nourished. NAD Head Exam: Normal inspection Neck Exam: Normal inspection. Non-tender. Normal alignment Pulmonary/Respiratory: Chest non-tender. Clear bilateral breath sounds, no crackles, no wheezing. Cardiovascular/Chest: Regular rate and rhythm. No murmurs. No JVD. Peripheral Pulses: 2+ Radial (R). 2+ Radial (L). 2+ Pedal (R). 2+ Pedal (L) Abdominal Exam: Normal bowel sounds. Soft. Right ileostomy bag with bowel loops. No hepatospenomegaly. No masses Ankle Exam: Negative ankle edema Lower extremities: Negative lower extremity edema Neuro/Mental Status: A&O x4. Coherent. Thoughts/Psych: Normal thought pattern. Appropriate mood and affect. Good judgement and insight Skin Exam: Normal inspection. Normal color. Warm. Dry laboratory and microbiology Laboratory Tests 09/17/24 04:23 Test 09/17/24 04:23 Range/Units Serum Glucose 94 74-106 mg/dL Labs and/or images reviewed: Labs reviewed by me, Image(s) reviewed by me Problem List/Assessment/Plan Problem List/Assessment/Plan Influenza B positive Sepsis due to above Acute hypoxic respiratory failure due to above, currently on O2 via NC 2 L Peribronchial cuffing indicating acute bronchitis likely due to above - CXR: Bilateral perihilar peribronchial thickening suggesting bronchitis. Questionable tracheostomy tube correlate with clinical setting. - IV meropenem b.i.d. - IV NS 2 L bolus, IV NS 100 cc/hour - oseltamivir 75 mg p.o. daily Right lower quadrant ostomy with associated large peristomal hernia Disembowelment secondary to peristomal hernia with loops of small bowel and colon, without strangulation or ischemia Large left ventral wall hernia Splenomegaly Possible portal hypertension? - CT abdomen pelvis:Right lower quadrant ostomy with associated large peristomal hernia. There are loops of small bowel and colon. No evidence of strangulation. Large left lateral ventral wall herniation demonstrating loops of colon. No definitive evidence of strangulation. Ancillary findings described above. Possible portal hypertension. HOLLY likely hemodynamically mediated/VMN on questionable CKD - IV NS 2 L bolus Hypokalemia - repleted DVT prophylaxis: Levonox 40mg Goals of care: DNR, discussed for >16 minutes on 09/17/2024 Plan discussed with patient and patient's daughter at bedside Plan discussed with Dr. Guzman Plan discussed with: Patient, Daughter, Other (RN) My Orders My Orders Orders - WILLIAM FOY RESIDENT Procedure Category Date Status Time Clear Liq Diet DIET 09/17/24 Transmitted Breakfast Incentive Spirometry ORDERS 09/17/24 Transmitted 13:56 Date of Service: Sep 17, 2024 Billing Provider: SANDRA GUZMAN MD Common Visit Codes: [id number] INP/OBS CARE(HIGH) WILLIAM FOY Sep 17, 2024 15:18 SANDRA GUZMAN MD Sep 19, 2024 16:03
--- NOTE | 2024-09-17 16:05 | DVHINCON2 ---
Consultation - Surgical Date Seen: Sep 17, 2024 Referring Physician Referring Physician ER Reason for Consultation HERNIA History of Present Illness History of Present Illness Patient is a 59-year-old female with a history of complex ventral abdominal hernias status post multiple hernia repair surgeries and ileostomy placement, chronic kidney disease, anemia, asthma, hypertension, and supraventricular tachycardia. She was brought in from home with complaints of abdominal pain, nausea, generalized body aches, weakness, and chills that started around 7pm after waking from a nap. She was found with a blood glucose of 83, was tachycardic at 115, had SpO2 of 92% on room air, and received 4 mg of Zofran ODT en route. Upon arrival, she reported right lower abdominal pain at the site of her stoma and noted that it appeared and felt more swollen than usual. She denies vomiting, diarrhea, urinary symptoms, ileostomy discharge, or other associated complaints. Patient is admitted with flu-like symptoms. Patient in chronic abdominal pain hernias are chronic ileostomy in place has good gas in the bag. 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 Family and Social History Family and Social History Nonsmoker nondrinker Allergies and medications Allergies: Coded Allergies: Penicillins (Verified Allergy, Unknown, 09/16/24) Home Meds Active Scripts Cefpodoxime Proxetil (Cefpodoxime Proxetil) 200 Mg Tab, 1 TAB PO BID for 5 Days, #10 TAB Prov:LOGAN MENDEZ RESIDENT 05/16/24 Ergocalciferol (VITAMIN D 32201 UNIT) 50,000 [place], [address] UNIT PO Q7D for 90 Days, #12 CAP Prov:LOGAN MENDEZ RESIDENT 05/16/24 Hydrocodone-Acetaminophen (Hydrocodone Bitartrate/AC 5-325 mg) 1 Tab Tab, 1 TAB PO Q6HPRN PRN, #20 TAB Prov:ELY LIGHT MD 04/27/24 Potassium Chloride (Klor-Con 8) 8 Meq Tab, 8 MEQ PO DAILY for 10 Days, #10 TAB Prov:ELY LIGHT MD 04/27/24 Aspirin (Aspir-81) 81 Mg Tab, 1 TAB PO DAILY, #90 TAB 1 Refill Prov:ESHA LANCASTER NP 01/13/24 Tramadol Hcl (Tramadol Hcl) 50 Mg Tab, 50 MG PO QID PRN, #20 TAB Prov:ADITHYA GALAN MD 12/17/23 Tamsulosin Hcl (Flomax) 0.4 Mg Cap, 1 CAP PO DAILY, #30 CAP 11 Refills Prov:ADITHYA GALAN MD 12/17/23 Reported Medications Ferrous Sulfate (Iron (Ferrous Sulfate)) 50 Mg Tab, 50 MG PO DAILY, TAB 04/23/24 Review of systems Review of Systems: HEENT:Normal, CVS:Normal, RESPIRATORY:Abnormal, :Abnormal (Abdominal pain) Examination Vital signs Vital Signs Date Time Temp Pulse Resp B/P (MAP) Pulse Ox O2 Delivery O2 Flow Rate FiO2 09/17/24 14:00 94 28 125/50 (75) 100 09/17/24 07:30 Nasal Cannula* 2 09/16/24 22:51 97.8 97.8 Medications Current Medications Medications (Trade) Dose Ordered Sig/Alvin Route PRN Reason Start Time Stop Time Status Last Admin Oseltamivir Phosphate (Tamiflu 75MG Capsule) 75 mg DAILY PO 09/17/24 04:00 09/22/24 03:59 09/17/24 04:15 Ciprofloxacin 200 ml @ 200 mls/hr BID IV 09/17/24 04:00 09/17/24 11:46 DC 09/17/24 04:36 Metronidazole 100 ml @ 100 mls/hr TID IV 09/17/24 06:00 09/17/24 11:46 DC 09/17/24 05:59 Potassium Chloride 100 ml @ 50 mls/hr Q2H IV 09/17/24 05:45 09/17/24 11:44 DC 09/17/24 09:45 Acetaminophen (Tylenol Tablet) 650 mg Q6HP PRN PO MILD PAIN (1-3 PAIN SCALE) 09/17/24 06:00 Pantoprazole Sodium (Protonix) 40 mg DAILY IV 09/17/24 10:00 09/17/24 10:00 Enoxaparin Sodium (Lovenox) 40 mg DAILY SC 09/17/24 10:00 09/17/24 10:00 Meropenem 50 ml @ 17 mls/hr Q12HR IV 09/17/24 22:00 Laboratory Labs Test 09/17/24 04:23 09/17/24 02:35 09/17/24 01:30 09/16/24 22:37 Range/Units White Blood Count 5.6 4.4-10.8 10^3/uL Red Blood Count 4.06 4.0-5.20 10^6/uL Hemoglobin 9.4 L 12.2-16.2 g/dL Hematocrit 30.2 L 36.0-46.0 % Mean Corpuscular Volume 74.5 L 80.0-100.0 fL Mean Corpuscular Hemoglobin 23.2 L 28.0-32.0 pg Mean Corpuscular Hemoglobin Concent 31.2 L 32.0-36.0 g/dL Red Cell Distribution Width 16.9 H 11.8-14.3 % Platelet Count 275 140-450 10^3/uL Mean Platelet Volume 7.9 6.9-10.8 fL Neutrophils (%) (Auto) 92.2 H 37.0-80.0 % Lymphocytes (%) (Auto) 4.2 L 10.0-50.0 % Monocytes (%) (Auto) 3.4 0.0-12.0 % Eosinophils (%) (Auto) 0.1 0.0-7.0 % Basophils (%) (Auto) 0.1 0.0-2.0 % Neutrophils # (Auto) 5.2 1.6-8.6 10 ^3/uL Lymphocytes # (Auto) 0.2 L 0.4-5.4 10 ^3/uL Monocytes # (Auto) 0.2 0-1.3 10 ^3/uL Eosinophils # (Auto) 0 0-0.8 10 ^3/uL Basophils # (Auto) 0 0-0.2 10 ^3/uL Nucleated Red Blood Cells 0.0 % Sodium Level 140 136-145 mmol/L Potassium Level 3.1 L 3.5-5.1 mmol/L Chloride Level 110 H 98-107 mmol/L Carbon Dioxide Level 21 20-31 mmol/L Anion Gap 9 5-15 Blood Urea Nitrogen 25 H 9-23 mg/dL Creatinine 1.51 H 0.550-1.02 mg/dL Glomerular Filtration Rate Calc 40 >90 mL/min BUN/Creatinine Ratio 16.6 10.0-20.0 Serum Glucose 94 74-106 mg/dL Lactic Acid Level 1.3 0.4-2.0 mmol/L Calcium Level 8.2 L 8.7-10.4 mg/dL Magnesium Level 1.3 L 1.6-2.6 mg/dL Iron Level 27 L 50-170 ug/dL Total Iron Binding Capacity 418 250-425 ug/dL Percent Iron Saturation 6.5 L 15-50 % Ferritin 5.6 L 10-291 ng/mL Total Bilirubin 1.1 H 0.2-1.0 mg/dL Aspartate Amino Transferase (AST) 26 13-40 U/L Alanine Aminotransferase (ALT) 18 7-40 U/L Alkaline Phosphatase 93 46-116 U/L Total Protein 6.4 5.7-8.2 g/dL Albumin 3.7 3.2-4.8 g/dL Influenza Type A Antigen Negative Negative Influenza Type B Antigen Positive Negative SARS-CoV-2 Antigen (Rapid) Negative NEGATIVE Urine Color Light-yellow Yellow Urine Clarity Clear Clear Urine pH 5.0 5.0-9.0 Urine Specific [place] 1.012 1.001-1.035 Urine Protein Trace H Negative Urine Ketones Negative Negative Urine Blood Trace H Negative /uL Urine Nitrite Negative Negative Urine Bilirubin Negative Negative Urine Urobilinogen Normal Negative mg/dL Urine Leukocyte Esterase Trace Negative /uL Urine RBC 3 0 - 4 /hpf Urine Microscopic WBC 11 H 0-5 /HPF Urine Squamous Epithelial Cells Few <5 /hpf Urine Bacteria Few H None Seen /hpf Urine Yeast (Budding) Occasional None Seen /hpf Urine Glucose Normal Normal mg/dL Urine Opiates Screen Neg NEGATIVE Urine Fentanyl Screen Neg NEGATIVE Urine Barbiturates Screen Neg NEGATIVE Urine Phencyclidine Screen Neg NEGATIVE Urine Amphetamines Screen Pos NEGATIVE Urine Benzodiazepines Screen Neg NEGATIVE Urine Cocaine Screen Neg NEGATIVE Urine Cannabinoids Screen Neg NEGATIVE Troponin I High Sensitivity 4 </=34 ng/L Test 09/16/24 21:35 Range/Units B-Type Natriuretic Peptide 29.67 0-100 pg/mL Examination: GENERAL:Normal, HEENT:Normal, NECK:Normal, LUNGS:Abnormal (Decreased breath sounds at bases), CVS:Normal, ABDOMEN:Normal, ABDOMEN:Abnormal (Multiple abdominal hernias with ileostomy with gas and stool in the bag.), MSK:Normal Problem List/Assessment/Plan Problems: (1) Colostomy in place (2) Peristomal hernia Assessment and Plan Chronic abdominal hernias no acute obstruction. No surgical intervention needed at this time. Plan discussed with Plan discussed with: Patient Visit Coding Surgery Date of Service if different f: Sep 17, 2024 Billing Provider: SYLVIA VALDIVIA Jr., MD Surgery Visit Codes: 65105 - INP CONSULT <80 MIN SYLVIA VALDIVIA Jr., MD Sep 17, 2024 16:05
[2024-09-17 19:30] VITALS: PULSE 86; RESP 19; O2SAT 99
[2024-09-17] MEDS: MEROPENEM 1GM IVPB 50 ML IV SCH (21:23)
[2024-09-17] MEDS: ACETAMINOPHEN 325 MG TAB PO PRN (21:24)
[2024-09-17 23:16] VITALS: BP 106/45; PULSE 81; RESP 20; TEMP 98.4; O2SAT 99
[2024-09-17 23:49] VITALS: PULSE 81; RESP 99; O2SAT 99
[2024-09-18] VITALS (8 sets, daily range): BP systolic 102–137; BP diastolic 45–62; PULSE 75–99; RESP 14–20; TEMP 97.8–98.4; O2SAT 98–99
[2024-09-18 05:45] LABS: Basophils # (auto) 0 10 ^3/uL (0-0.2); Eosinophils # (auto) 0.1 10 ^3/uL (0-0.8); Lymphocytes # (auto) 0.7 10 ^3/uL (0.4-5.4); Monocytes # (auto) 0.4 10 ^3/uL (0-1.3); Neutrophils # (auto) 4.4 10 ^3/uL (1.6-8.6)
[2024-09-18 05:47] LABS: Basophils % (auto) 0.2 % (0.0-2.0); Eosinophils % (auto) 1.4 % (0.0-7.0); Hemoglobin 8.6 g/dL (12.2-16.2); Lymphocytes % (auto) 12.4 % (10.0-50.0); Mean Corpuscular Hemoglobin 23.6 pg (28.0-32.0); Mean Corpuscular Volume 73.7 fL (80.0-100.0); Monocytes % (auto) 7.8 % (0.0-12.0); Neutrophils % (auto) 78.2 % (37.0-80.0); Platelet Count (auto) 262 10^3/uL (140-450); Red Blood Cells 3.67 10^6/uL (4.0-5.20); Red Cell Distribution Width 16.8 % (11.8-14.3); White Blood Cell 5.7 10^3/uL (4.4-10.8)
[2024-09-18 05:54] LABS: Anion Gap 7 (5-15); Carbon Dioxide 21 mmol/L (20-31); Sodium 141 mmol/L (136-145)
[2024-09-18 05:55] LABS: Calcium 8.9 mg/dL (8.7-10.4)
[2024-09-18 06:00] LABS: BUN/Creatinine Ratio 11.6 (10.0-20.0); Blood Urea Nitrogen 17 mg/dL (9-23); Glucose 88 mg/dL (74-106)
[2024-09-18 06:16] LABS: Chloride 113 mmol/L (98-107); Potassium 3.2 mmol/L (3.5-5.1)
[2024-09-18] MEDS: POTASSIUM EFFERVESENT TAB 25 MEQ PO ONE (08:47)
--- NOTE | 2024-09-18 10:24 | ECG ---
[facility] Test Date: 2024-09-16 Test Time: 20:53:19 Pat Name: LUDY RUELAS Department: ED Room: 0236 A Gender: F Web Manager: CHICHI : 1965 Requested By: NANCY MOROCHO Order Number: [id number] Reading MD: Krishan Davies Measurements Intervals [place] Rate: 101 P: 49 [place]: 147 QRS: 104 QRSD: 95 T: 59 QT: 339 QTc: 440 Interpretive Statements Sinus tachycardia Right axis deviation Low voltage, extremity and precordial leads Baseline wander in lead(s) I,III,aVL Electronically Signed On 09-18-2024 22:12:20 PST by Krishan Davies Please click the below link to view image of tracing.
--- NOTE | 2024-09-18 12:06 | DVHPNRES ---
Progress Note Date Seen: Sep 18, 2024 Resident Creating Document: WILLIAM FOY RESIDENT Medical Necessity Reason Pt with a Central, PICC or Fol: Yes The following are medically ne: Urbina Catheter Subjective Review of Systems Patient is a 59-year-old female with past medical history of CKD, anemia, hypertension who came in due to generalized weakness. According to the patient, yesterday on 09/17/2024, she felt increasing weakness and fatigue, while she was in the restroom she felt like she could not get up from the toilet. At baseline patient is able to walk independently. Patient denies having similar symptoms before. At the time of my assessment patient was alert and oriented in 4 spheres, however, patient was increasingly somnolent and unable to answer most questions. Majority of the history was obtained from patient's daughter at bedside. 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 On inquiring patient and her daughter, they denied any changes in the frequency or forearm of ileostomy output, denied any pain or tenderness along the ileostomy. CT scan showed right lower quadrant ostomy with large peristomal hernia. Loops of small bowel and colon. Large left ventral wall herniation. Patient tested positive for influenza B. Past surgical history: Multiple hernia repair surgeries, ileostomy placement, recent nephrostomy currently removed, 7 times , skin grafting procedures, appendectomy, cholecystectomy Past Hospitalization: 1 month ago for nephrolithiasis Social & Personal history: Patient lives with her family. Denies ever using tobacco, alcohol, drugs. Allergies: Penicillin, however, patient unsure of what reaction he brings on Patient seen and examined at bedside. Patient is alert and oriented to time, place person and responding to all questions. Objective vital signs Vital Sign Date Time Temp Pulse Resp B/P (MAP) Pulse Ox O2 Delivery O2 Flow Rate FiO2 09/18/24 09:00 98.0 80 16 137/57 (83) 98 98.0 09/17/24 23:49 Nasal Cannula* 2 28 Total Intake and Output 09/17/24 09/17/24 09/18/24 14:59 22:59 06:59 Intake Total 550 ml Output Total 700 ml Balance -700 ml 550 ml medications Current Medications Medications Dose Ordered Sig/Alvin Route Start Time Stop Time Status Last Admin Dose Admin Oseltamivir Phosphate 75 mg DAILY PO 09/17/24 04:00 09/22/24 03:59 09/18/24 10:31 75 MG Acetaminophen 650 mg Q6HP PRN PO 09/17/24 06:00 09/18/24 08:47 650 MG Pantoprazole Sodium 40 mg DAILY IV 09/17/24 10:00 09/18/24 10:31 40 MG Enoxaparin Sodium 40 mg DAILY SC 09/17/24 10:00 09/18/24 10:32 40 MG Meropenem 50 ml @ 17 mls/hr Q12HR IV 09/17/24 22:00 09/17/24 21:23 17 MLS/HR Examination General Appearance: More awake and alert today, some periorbital swelling. Well developed. Well nourished. NAD Head Exam: Normal inspection Neck Exam: Normal inspection. Non-tender. Normal alignment Pulmonary/Respiratory: Chest non-tender. Clear bilateral breath sounds, no crackles, no wheezing. Cardiovascular/Chest: Regular rate and rhythm. No murmurs. No JVD. Peripheral Pulses: 2+ Radial (R). 2+ Radial (L). 2+ Pedal (R). 2+ Pedal (L) Abdominal Exam: Normal bowel sounds. Soft. Right ileostomy bag with bowel loops. No hepatospenomegaly. No masses Ankle Exam: Negative ankle edema Lower extremities: Negative lower extremity edema Neuro/Mental Status: A&O x4. Coherent. Thoughts/Psych: Normal thought pattern. Appropriate mood and affect. Good judgement and insight Skin Exam: Normal inspection. Normal color. Warm. Dry laboratory and microbiology Laboratory Tests 09/18/24 05:11 Test 09/18/24 05:11 Range/Units Serum Glucose 88 74-106 mg/dL Microbiology Date/Time Source Procedure Growth Status 09/17/24 01:30 Voided Urine Urine Culture - Preliminary Resulted 09/16/24 21:35 Blood Blood Culture - Preliminary NO GROWTH AFTER 24 HOURS OF INCUBATION. Resulted Labs and/or images reviewed: Labs reviewed by me, Image(s) reviewed by me Problem List/Assessment/Plan Problem List/Assessment/Plan Influenza B positive Sepsis due to influenza versus enteritis Acute hypoxic respiratory failure due to above, currently on O2 via NC 2 L Peribronchial cuffing indicating acute bronchitis likely due to above - CXR: Bilateral perihilar peribronchial thickening suggesting bronchitis. Questionable tracheostomy tube correlate with clinical setting. - IV meropenem b.i.d. - IV metronidazole - IV NS 2 L bolus, IV NS 100 cc/hour - oseltamivir 75 mg p.o. daily Right lower quadrant ostomy with associated large peristomal hernia Disembowelment secondary to peristomal hernia with loops of small bowel and colon, without strangulation or ischemia Large left ventral wall hernia Splenomegaly Possible portal hypertension? - CT abdomen pelvis:Right lower quadrant ostomy with associated large peristomal hernia. There are loops of small bowel and colon. No evidence of strangulation. Large left lateral ventral wall herniation demonstrating loops of colon. No definitive evidence of strangulation. Ancillary findings described above. Possible portal hypertension. HOLLY likely hemodynamically mediated/VMN on questionable CKD - IV NS 2 L bolus Hypokalemia - repleted DVT prophylaxis: Levonox 40mg Goals of care: Patient decided that she would like to be full code on 09/18/2024, discussed for >16 minutes on 09/17/2024 Plan discussed with patient and patient's daughter at bedside Plan discussed with Dr. Guzman Plan discussed with: Patient, Daughter, Other (RN) My Orders My Orders Orders - WILLIAM FOY Procedure Category Date Status Time Incentive Spirometry ORDERS 09/17/24 Transmitted 13:56 Discontinue Urbina SANTOSH 09/18/24 In Process Catheter 10:38 Date of Service: Sep 18, 2024 Billing Provider: SANDRA GUZMAN MD Common Visit Codes: [id number] INP/OBS CARE(HIGH) WILLIAM FOY Sep 18, 2024 12:06 SANDRA GUZMAN MD Sep 19, 2024 16:04
[2024-09-18] MEDS ORDERED: ONDANSETRON HCL 4 MG/2 ML VIAL IV ONE (14:15)
--- NOTE | 2024-09-19 06:22 | DVHDSRES ---
Discharge Summary Date of Admission Resident Creating Document: WILLIAM FOY RESIDENT Sep 17, 2024 at 03:42 Date of Discharge: Sep 18, 2024 Admitting Diagnosis Generalized weakness Labs/Diagnostic Data: Laboratory Results Test 09/18/24 05:11 09/17/24 04:23 09/17/24 02:35 09/17/24 01:30 White Blood Count 5.7 10^3/uL (4.4-10.8) Red Blood Count 3.67 10^6/uL (4.0-5.20) Hemoglobin 8.6 g/dL (12.2-16.2) Hematocrit 27.0 % (36.0-46.0) Mean Corpuscular Volume 73.7 fL (80.0-100.0) Mean Corpuscular Hemoglobin 23.6 pg (28.0-32.0) Mean Corpuscular Hemoglobin Concent 32.0 g/dL (32.0-36.0) Red Cell Distribution Width 16.8 % (11.8-14.3) Platelet Count 262 10^3/uL (140-450) Mean Platelet Volume 7.8 fL (6.9-10.8) Neutrophils (%) (Auto) 78.2 % (37.0-80.0) Lymphocytes (%) (Auto) 12.4 % (10.0-50.0) Monocytes (%) (Auto) 7.8 % (0.0-12.0) Eosinophils (%) (Auto) 1.4 % (0.0-7.0) Basophils (%) (Auto) 0.2 % (0.0-2.0) Neutrophils # (Auto) 4.4 10 ^3/uL (1.6-8.6) Lymphocytes # (Auto) 0.7 10 ^3/uL (0.4-5.4) Monocytes # (Auto) 0.4 10 ^3/uL (0-1.3) Eosinophils # (Auto) 0.1 10 ^3/uL (0-0.8) Basophils # (Auto) 0 10 ^3/uL (0-0.2) Nucleated Red Blood Cells 0.0 % Sodium Level 141 mmol/L (136-145) Potassium Level 3.2 mmol/L (3.5-5.1) Chloride Level 113 mmol/L (98-107) Carbon Dioxide Level 21 mmol/L (20-31) Anion Gap 7 (5-15) Blood Urea Nitrogen 17 mg/dL (9-23) Creatinine 1.47 mg/dL (0.550-1.02) Glomerular Filtration Rate Calc 41 mL/min (>90) BUN/Creatinine Ratio 11.6 (10.0-20.0) Serum Glucose 88 mg/dL (74-106) Calcium Level 8.9 mg/dL (8.7-10.4) Lactic Acid Level 1.3 mmol/L (0.4-2.0) Magnesium Level 1.3 mg/dL (1.6-2.6) Iron Level 27 ug/dL (50-170) Total Iron Binding Capacity 418 ug/dL (250-425) Percent Iron Saturation 6.5 % (15-50) Ferritin 5.6 ng/mL (10-291) Total Bilirubin 1.1 mg/dL (0.2-1.0) Aspartate Amino Transferase (AST) 26 U/L (13-40) Alanine Aminotransferase (ALT) 18 U/L (7-40) Alkaline Phosphatase 93 U/L (46-116) Total Protein 6.4 g/dL (5.7-8.2) Albumin 3.7 g/dL (3.2-4.8) Influenza Type A Antigen Negative (Negative) Influenza Type B Antigen Positive (Negative) SARS-CoV-2 Antigen (Rapid) Negative (NEGATIVE) Urine Color Light-yellow (Yellow) Urine Clarity Clear (Clear) Urine pH 5.0 (5.0-9.0) Urine Specific [place] 1.012 (1.001-1.035) Urine Protein Trace (Negative) Urine Ketones Negative (Negative) Urine Blood Trace /uL (Negative) Urine Nitrite Negative (Negative) Urine Bilirubin Negative (Negative) Urine Urobilinogen Normal mg/dL (Negative) Urine Leukocyte Esterase Trace /uL (Negative) Urine RBC 3 /hpf (0 - 4) Urine Microscopic WBC 11 /HPF (0-5) Urine Squamous Epithelial Cells Few /hpf (<5) Urine Bacteria Few /hpf (None Seen) Urine Yeast (Budding) Occasional /hpf (None Urine Glucose Normal mg/dL (Normal) Urine Opiates Screen Neg (NEGATIVE) Urine Fentanyl Screen Neg (NEGATIVE) Urine Barbiturates Screen Neg (NEGATIVE) Urine Phencyclidine Screen Neg (NEGATIVE) Urine Amphetamines Screen Pos (NEGATIVE) Urine Benzodiazepines Screen Neg (NEGATIVE) Urine Cocaine Screen Neg (NEGATIVE) Urine Cannabinoids Screen Neg (NEGATIVE) Test 09/16/24 22:37 09/16/24 21:35 Troponin I High Sensitivity 4 ng/L (</=34) B-Type Natriuretic Peptide 29.67 pg/mL (0-100) Other Laboratory Tests 09/18/24 05:11 Brief Hx & Hospital Course: Patient is a 59-year-old female with past medical history of CKD, anemia, hypertension who came in due to generalized weakness. According to the patient, yesterday on 09/17/2024, she felt increasing weakness and fatigue, while she was in the restroom she felt like she could not get up from the toilet. At baseline patient is able to walk independently. Patient denies having similar symptoms before. At the time of my assessment patient was alert and oriented in 4 spheres, however, patient was increasingly somnolent and unable to answer most questions. Majority of the history was obtained from patient's daughter at bedside. 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 On inquiring patient and her daughter, they denied any changes in the frequency or forearm of ileostomy output, denied any pain or tenderness along the ileostomy. CT scan showed right lower quadrant ostomy with large peristomal hernia. Loops of small bowel and colon. Large left ventral wall herniation. Patient tested positive for influenza B. Hospital course: Chest x-ray showed bilateral perihilar peribronchial thickening suggesting bronchitis. Patient was started on IV meropenem b.i.d. and IV metronidazole, also given IV NS 2 L bolus along with IV NS at 100 cc/hour. Oseltamivir 75 mg was also started for the patient. On the 2nd day of hospitalization, patient's clinical status significantly improved and she was much more alert, oriented and talkative. However, patient left against medical advice before further evaluation and management could be completed. Condition at Discharge: Undetermined Final Diagnosis/Problems List Acute hypoxic respiratory failure Influenza B positive Sepsis due to influenza versus enteritis Right lower quadrant ostomy with the associated large peristomal hernia [place]ana bowel movements secondary to peristomal hernia with loops of small bowel and colon, without strangulation or ischemia Large left ventral wall hernia Splenomegaly Possible portal hypertension? HOLLY likely hemodynamically mediated/VMN and on questionable CKD Hypokalemia Discharge Disposition: AMA Discharge Statement: "Patient was advised to return to the ER or call 911 if any headaches, dizziness, shortness of breath, chest pain, abdominal pain, bleeding, fevers, or worsening of medical condition. Patient was counseled about treatment plan, medications, possible side effects, patientverbalized understanding. All questions were answered to the best of my ability. This discharge took greater then 30 minutes in planning, reviewing documentation, counseling the patient, and discussing with other team members." ASSESSMENT ASSESSMENT Assessment WILLIAM FOY RESIDENT Sep 19, 2024 06:22
[2024-09-19] MEDS ORDERED: IRON SUCROSE COMPLEX 110 ML IV SCH (12:00)
[2024-09-20] MEDS ORDERED: MET500T PO (07:15)
[2024-09-20] MEDS ORDERED: CIPR500T4 PO (07:15)
== END 2024-09-18 20:10 | disposition left against medical advice (07) | DRG 720 ==
LOC: ER 20:47 → EDBD 20:47 → OVERFLOW 09-17 03:42 → EAST 09-17 23:15
PROVIDERS: ADMIT Student in an Organized Health Care Education/Training Program; ATTEND Student in an Organized Health Care Education/Training Program
DX: A41.9 Sepsis, unspecified organism (principal); J96.01 Acute respiratory failure with hypoxia; N17.0 Acute kidney failure with tubular necrosis; N18.9 Chronic kidney disease, unspecified; E87.6 Hypokalemia; I86.8 Varicose veins of other specified sites; R16.1 Splenomegaly, not elsewhere classified; K43.9 Ventral hernia without obstruction or gangrene; K46.9 Unspecified abdominal hernia without obstruction or gangrene; J12.9 Viral pneumonia, unspecified; G89.29 Other chronic pain; I12.9 Hypertensive chronic kidney disease with stage 1 through stage 4 chronic kidney disease, or unspecified chronic kidney disease; J45.909 Unspecified asthma, uncomplicated; Z93.3 Colostomy status; Z87.442 Personal history of urinary calculi; Z93.2 Ileostomy status; Z79.82 Long term (current) use of aspirin; Z79.899 Other long term (current) drug therapy; Z88.0 Allergy status to penicillin
CPT/HCPCS: 36415; 71045; 74176; 80048; 80053; 80307; 81001; 82728; 83540; 83550; 83605; 83735; 83880; 84484; 85025; 87040; 87086; 87088; 87426; 87804; 93005; 96361; 96365; 96375; G0378; J1956; J2185; J2405; J2470; J3480; J3490

== ENCOUNTER → 2024-10-20 | Outpatient (CLI) | payer MEDICAID ==
[~2024-10-20] MED LIST changes: +CIPR500T4 PO; +MET500T PO
[2024-10-20 08:08] LABS: Eosinophils # (auto) 0.1 10 ^3/uL (0-0.8); Hemoglobin 10.4 g/dL (12.2-16.2); Lymphocytes # (auto) 1.4 10 ^3/uL (0.4-5.4); Neutrophils # (auto) 4.8 10 ^3/uL (1.6-8.6)
[2024-10-20 08:11] LABS: Basophils # (auto) 0 10 ^3/uL (0-0.2); Basophils % (auto) 0.7 % (0.0-2.0); Hematocrit 32.1 % (36.0-46.0); Lymphocytes % (auto) 20.3 % (10.0-50.0); Mean Corpuscular Hemoglobin 23.5 pg (28.0-32.0); Mean Corpuscular Hgb Conc. 32.5 g/dL (32.0-36.0); Mean Corpuscular Volume 72.1 fL (80.0-100.0); Monocytes # (auto) 0.6 10 ^3/uL (0-1.3); Platelet Count (auto) 362 10^3/uL (140-450); Red Blood Cells 4.45 10^6/uL (4.0-5.20); Red Cell Distribution Width 16.8 % (11.8-14.3); White Blood Cell 6.9 10^3/uL (4.4-10.8)
[2024-10-20 08:22] LABS: Alanine Aminotransferase 23 U/L (7-40); Albumin 4.6 g/dL (3.2-4.8); Alkaline Phosphatase 111 U/L (46-116); Anion Gap 13 (5-15); Aspartate Aminotransferase 24 U/L (13-40); Bilirubin, Total 0.7 mg/dL (0.2-1.0); Calcium 9.5 mg/dL (8.7-10.4); Carbon Dioxide 22 mmol/L (20-31); Chloride 106 mmol/L (98-107); Glucose 93 mg/dL (74-106); Potassium 3.6 mmol/L (3.5-5.1); Sodium 141 mmol/L (136-145)
[2024-10-20 08:26] LABS: Blood Urea Nitrogen 34 mg/dL (9-23); Total Protein 8.3 g/dL (5.7-8.2)
== END | disposition home or self-care (01) ==
LOC: LAB 06:50
PROVIDERS: ATTEND Internal Medicine
DX: E87.6 Hypokalemia (principal); D64.9 Anemia, unspecified
CPT/HCPCS: 36415; 80053; 85025